=== PATIENT | female | born 1985 | race Caucasian/White ===

== ENCOUNTER 2020-01-29 11:21 | Emergency (ER) | payer SELFPAY ==
--- NOTE | 2020-01-29 11:24 | CTR_ITS ---
PROCEDURE INFORMATION: Exam: CT Abdomen And Pelvis With Contrast Exam date and time: 01/29/2020 1:08 PM Age: 34 years old Clinical indication: Abdominal pain; Acute; Prior surgery; Surgery date: 3-7 days post-operative; Surgery type: Gastric sleeve; Additional info: Abdominal pain, fever TECHNIQUE: Imaging protocol: Computed tomography of the abdomen and pelvis with intravenous contrast. Radiation optimization: All CT scans at this facility use at least one of these dose optimization techniques: automated exposure control; mA and/or kV adjustment per patient size (includes targeted exams where dose is matched to clinical indication); or iterative reconstruction. Contrast material: OMNI 300; Contrast volume: 95 ml; Contrast route: INTRAVENOUS (IV); COMPARISON: No relevant prior studies available. RADIATION DOSE METRICS: Total DLP (mGy-cm): 1851.72 FINDINGS: Liver: Normal. No mass. Gallbladder and bile ducts: Normal. No calcified stones. No ductal dilation. Pancreas: Normal. No ductal dilation. Spleen: Normal. No splenomegaly. Adrenals: Normal. No mass. Kidneys and ureters: Normal. No hydronephrosis. Stomach and bowel: Recent gastric sleeve surgery. Several left colon diverticula. No evidence for acute diverticulitis. Appendix: No evidence of appendicitis. Intraperitoneal space: Unremarkable. No free air. No significant fluid collection. Vasculature: Approximately 2 cm area of low density in the proximal left iliac vein (series 2, axial image 54 through 58). Possible focal nonocclusive left iliac vein thrombus. By CT, there does not appear to be an obvious overlying left iliac vein compression. Lymph nodes: Unremarkable. No enlarged lymph nodes. Bladder: Unremarkable as visualized. Reproductive: 2 cm right ovarian dominant follicle/cyst. Bones/joints: Unremarkable. No acute fracture. Soft tissues: Mild anterior abdominal wall subcutaneous fat stranding consistent with recent laparoscopic surgery. CT/CT abdomen pelvis w con* [id number] IMPRESSION: 1.) Recent gastric sleeve surgery. 2.) Approximately 2 cm area of low density in the proximal left iliac vein (series 2, axial image 54 through 58). Possible focal nonocclusive left iliac vein thrombus. 3.) 2 cm right ovarian dominant follicle/cyst. Radiation Dose CTDIVOL = (mGy): DLP = 1851.72 (mGy-cm)
[2020-01-29 11:31] VITALS: BP 125/99; PULSE 84; RESP 18; TEMP 37.1; O2SAT 97; BMI 40.8
--- NOTE | 2020-01-29 11:47 | ED_ITS ---
HPI - Abdominal Pain General: Chief Complaint: Abdominal Pain Stated Complaint: ABD PAIN Time Seen by Provider: 01/29/20 11:46 History of Present Illness: HPI narrative: Patient is a 34-year-old female who comes to the ED with epigastric pain, nausea vomiting. Patient had gastric sleeve surgery performed approximately 23 days ago at a doctor in [place]. Surgery went well and there were no complications. She developed the epigastric pain, nausea and vomiting yesterday. She states the epigastric pain gets worse if she is lying flat and states that it feels like a burning discomfort. She rates it currently about a 3 out of 10. She is currently been on full liquid diet and has had trouble keeping that down since yesterday. She states she has not had a bowel movement since last . She is also complaining of having trouble urinating for the past week. She states that she is having a lot of dribbling incidences but has not been able to producing good stream when she urinates. Denies any blood in the urine. Patient has not been taking any pain narcotics post surgery. Associated Symptoms: Reports belching, change in bowel habits (no bowel movement since last .), nausea and vomiting; Denies chills, constipation, diarrhea, dysuria, fever(s), hematochezia and hematuria Review of Systems Const: Denies: fever(s), chills or fatigue Eyes: Denies: change in vision or eye discomfort ENMT: Denies: throat pain, odynophagia, nasal discharge or nasal congestion Card: Denies: chest pain, palpitations, edema, swelling of feet/ankles, dyspnea on exertion or orthopnea Resp: Denies: dyspnea, productive cough or non-productive cough GI: Reports: abdominal pain, nausea, vomiting, belching and change in bowel habits (no bowel movement since last .); Denies: diarrhea, constipation or hematochezia : Denies: flank pain, dysuria or hematuria Musc: Denies: neck pain, back pain or extremity swelling Skin/Breast: Denies: rash or new lesions Neuro: Denies: headache(s), numbness in extremities or weakness in extremities Physical Exam Const: COMMON NORMALS: no acute distress, patient oriented x3 and alert GENERAL APPEARANCE: cooperative and comfortable HENMT: COMMON NORMALS: normocephalic HEAD & SCALP: normocephalic MOUTH: Normal oral and palatal mucosa present THROAT: posterior oropharynx normal and uvula midline Eye: COMMON NORMALS: Equal, round and reactive pupils present PUPIL: Yes Equal, round and reactive pupils present Neck/C-Spine: COMMON NORMALS: supple GENERAL: Yes normal visual inspection Resp: COMMON NORMALS: normal respiratory effort, No retractions, No use of accessory muscles and clear to auscultation bilaterally AUSCULTATION: clear to auscultation bilaterally Cardio: COMMON NORMALS: regular rate, regular rhythm, S1 normal heart sound present, S2 normal heart sound present, No gallops present (Cardio), No clicks present (Cardio), No murmurs present (Cardio) and Peripheral pulses 2+ throu ghout RATE: regular rate RHYTHM: regular rhythm HEART SOUNDS: S1 normal heart sound present and S2 normal heart sound present PERIPHERAL PULSES: Peripheral pulses 2+ throughout GI: COMMON NORMALS: Soft to palpation and no masses AUSCULTATION: Yes Hypoactive bowel sounds present (minimal bowel sounds heard) PALPATION: Yes Soft to palpation and Yes Tenderness to palpation present (GI) Details: other (epigastric region) : COMMON NORMALS: Yes no CVA tenderness BLADDER/KIDNEY EXAM: Yes no CVA tenderness Back/Pelvis: COMMON NORMALS: no CVA tenderness Extremity: COMMON NORMALS: normal to inspection and no pedal edema Neuro: COMMON NORMALS: patient oriented x3 SENSORIUM/ORIENTATION: Yes alert GAIT: Yes Normal gait present Skin: COMMON NORMALS: no rashes or lesions noted GENERAL SKIN EXAM: no rashes or lesions noted and dry skin Course Consultations: Consultation #1: I contacted her PCP Dr. Bui and discussed with him the lab and image findings. Dr. Bui stated he just wanted to make sure patient did not have a bowel obstruction. He said he would see patient in a couple days if symptoms worsen or she can set up an appointment with him sometime next week. Vital Signs: Vital signs: Vital Signs Temperature 98.7 F 01/29/20 11:31 Pulse Rate 70 01/29/20 16:31 Respiratory Rate 16 01/29/20 16:31 Blood Pressure 125/85 01/29/20 16:31 Pulse Oximetry 98 01/29/20 16:31 MDM - Abdominal Pain MDM Narrative: Medical decision making narrative: Patient is a 34-year-old female who was sent over to the ED by her PCP Dr. Bui to rule out a bowel obstruction. Patient had a gastric sleeve surgery performed in [place] 26 days ago. In the last 24 hours patient has developed epigastric/reflux burning pain and nausea and vomiting. Patient also had not had a bowel movement in 5 days. CBC and CMP were unremarkable. Lipase 30. CT of the abdomen showed a possible thrombus in the left iliac vein and it was recommended that ultrasound venous duplex of the left lower extremity be performed. Ultrasound venous duplex showed no blood clots or DVTs. Patient was given reglan, Protonix, IV fluids and GI cocktail while here in the ED. Patient's nausea and epigastric pain greatly improved. I contacted Dr. Bui and informed him about the patient's condition and how she did not have a bowel obstruction. Dr. Bui said he would see patient in a couple days if symptoms worsen or next week. Patient discharged and put on a prescription of Protonix and Zofran. She was told to follow-up with Dr. Bui in a couple days if needed or sometime next week. She can always return to the ED for reevaluation if symptoms worsen. Patient understood and agreed with plan. Lab Data: Attestation: I reviewed the patient's lab results. Labs: Lab Results 01/29/20 01/29/20 01/29/20 Range/Units 12:50 12:50 12:50 WBC 7.1 (4.0-10.0) 10^3/ uL RBC 4.76 (4.1-5.3) 10^6/u L Hgb 13.7 (11.5-15.3) g/dL Hct 43.5 (37.0-47.0) % MCV 91.4 (81-99) fL MCH 28.8 (28.0-34.0) pg MCHC 31.5 (30.0-36.0) g/dL RDW 13.4 (12.1-15.1) % Plt Count 195 (130-400) 10^3/c mm MPV 13.5 H (7.4-10.4) fL Neut % (Auto) 64.5 % Lymph % (Auto) 24.2 % [place] % (Auto) 9.7 % Eos % (Auto) 1.1 % Baso % (Auto) 0.4 % Neut # (Auto) 4.56 (1.8-7.7) 10^3/u L Lymph # (Auto) 1.7 (0.8-4.8) 10^3/u L [place] # (Auto) 0.7 (0.2-0.9) 10^3/u L Eos # (Auto) 0.1 (0.0-0.8) 10^3/u L Baso # (Auto) 0.0 (0.0-0.1) 10^3/u L Nucleated RBC % (a uto) 0 % Nucleated RBCs # 0.0 /100WBC Sodium 142 (136-145) mmol/L Potassium 4.2 (3.5-5.1) mmol/L Chloride 107 (98-107) mmol/L Carbon Dioxide 23 (22-29) mmol/L Anion Gap 16.2 (5-19) BUN 6 (6-20) mg/dL Creatinine 0.7 (0.5-0.9) mg/dL GFR Calculation 95.2 (90-130) mL/min Glucose 86 (65-115) mg/dL Calculated Osmolal ity 289 (285-295) mOsm/k g Calcium 9.8 (8.5-10.5) mg/dL Total Bilirubin 1.0 (0.15-1.2) mg/dL AST 32 (0-32) U/L ALT 26 (0-33) U/L Alkaline Phosphata se 83 (35-105) IU/L Total Protein 6.9 (6.6-8.7) g/dL Albumin 4.3 (3.5-5.2) g/dL Globulin 2.6 (1.3-4.6) g/dL Lipase 30 (13-60) U/L HCG, Qual Negative (Negative) Urine Color (Yellow) Urine Appearance (CLEAR) Urine pH (5-7) Ur Specific Gravit y (1.005-1.030) Urine Protein (Negative) Urine Glucose (UA) (Normal) Urine Ketones (Negative) Urine Blood (Negative) Urine Nitrate (Negative) Urine Bilirubin (NEGATIVE) Urine Urobilinogen (Negative) mg/dL Ur Leukocyte Hazel ase (Negative) Urine RBC (0-2) /hpf Urine WBC (0-5) /hpf Ur Squamous Epith Cells (0-5) Amorphous Sediment Urine Bacteria (NONE) Urine Mucus 01/29/20 Range/Units 14:38 WBC (4.0-10.0) 10^3/ uL RBC (4.1-5.3) 10^6/u L Hgb (11.5-15.3) g/dL Hct (37.0-47.0) % MCV (81-99) fL MCH (28.0-34.0) pg MCHC (30.0-36.0) g/dL RDW (12.1-15.1) % Plt Count (130-400) 10^3/c mm MPV (7.4-10.4) fL Neut % (Auto) % Lymph % (Auto) % [place] % (Auto) % Eos % (Auto) % Baso % (Auto) % Neut # (Auto) (1.8-7.7) 10^3/u L Lymph # (Auto) (0.8-4.8) 10^3/u L [place] # (Auto) (0.2-0.9) 10^3/u L Eos # (Auto) (0.0-0.8) 10^3/u L Baso # (Auto) (0.0-0.1) 10^3/u L Nucleated RBC % (a uto) % Nucleated RBCs # /100WBC Sodium (136-145) mmol/L Potassium (3.5-5.1) mmol/L Chloride (98-107) mmol/L Carbon Dioxide (22-29) mmol/L Anion Gap (5-19) BUN (6-20) mg/dL Creatinine (0.5-0.9) mg/dL GFR Calculation (90-130) mL/min Glucose (65-115) mg/dL Calculated Osmolal ity (285-295) mOsm/k g Calcium (8.5-10.5) mg/dL Total Bilirubin (0.15-1.2) mg/dL AST (0-32) U/L ALT (0-33) U/L Alkaline Phosphata se (35-105) IU/L Total Protein (6.6-8.7) g/dL Albumin (3.5-5.2) g/dL Globulin (1.3-4.6) g/dL Lipase (13-60) U/L HCG, Qual (Negative) Urine Color Dark yellow (Yellow) Urine Appearance Hazy A (CLEAR) Urine pH 5 (5-7) Ur Specific Gravit y 1.015 (1.005-1.030) Urine Protein Neg (Negative) Urine Glucose (UA) Norm (Normal) Urine Ketones 1+ H (Negative) Urine Blood Neg (Negative) Urine Nitrate Negative (Negative) Urine Bilirubin Neg (NEGATIVE) Urine Urobilinogen 1 H (Negative) mg/dL Ur Leukocyte Hazel ase Negative (Negative) Urine RBC 0-4 H (0-2) /hpf Urine WBC None (0-5) /hpf Ur Squamous Epith Cells 40-55 H (0-5) Amorphous Sediment Not Reportable Urine Bacteria Trace (NONE) Urine Mucus 2+ Imaging Data ^: CT Abd/Pel: Attestation: I personally reviewed and interpreted this imaging study as follows: Radiologist's impression: [place] [address] CT Scan Report Signed with Addenda Patient: Chanell Andujar Unit #: [id number] : 1985 Age/Sex: 34 / F ADM Date: 01/29/20 Loc: ER Room/Bed: Attending Dr: Ordering Provider/Ordering MD: Larissa Strange MD Date of Service: 01/29/20 Procedure(s): CT abdomen pelvis w con* [id number] Accession Number(s): [id number] Report Number: [id number]/CT abdomen pelvis w con* [id number] Addendum created at 2:[address] findings discussed with GONSALO Soriano via phone conference at 2:26 p.m.. Findings were understood and acknowledged. Radiation Dose CTDIVOL = (mGy): DLP = 1851.72 (mGy-cm) Addendum Dictated By: Elvis Pizano MD Addendum Signed By: Elvis Pizano MD Signed Date/Time: 1430 Addendum Cosigned By: PROCEDURE INFORMATION: Exam: CT Abdomen And Pelvis With Contrast Exam date and time: 01/29/2020 1:08 PM Age: 34 years old Clinical indication: Abdominal pain; Acute; Prior surgery; Surgery date: 3-7 days post-operative; Surgery type: Gastric sleeve; Additional info: Abdominal pain, fever TECHNIQUE: Imaging protocol: Computed tomography of the abdomen and pelvis with intravenous contrast. Radiation optimization: All CT scans at this facility use at least one of these dose optimization techniques: automated exposure control; mA and/or kV adjustment per patient size (includes targeted exams where dose is matched to clinical indication); or iterative reconstruction. Contrast material: OMNI 300; Contrast volume: 95 ml; Contrast route: INTRAVENOUS (IV); COMPARISON: No relevant prior studies available. RADIATION DOSE METRICS: Total DLP (mGy-cm): 1851.72 FINDINGS: Liver: Normal. No mass. Gallbladder and bile ducts: Normal. No calcified stones. No ductal dilation. Pancreas: Normal. No ductal dilation. Spleen: Normal. No splenomegaly. Adrenals: Normal. No mass. Kidneys and ureters: Normal. No hydronephrosis. Stomach and bowel: Recent gastric sleeve surgery. Several left colon diverticula. No evidence for acute diverticulitis. Appendix: No evidence of appendicitis. Intraperitoneal space: Unremarkable. No free air. No significant fluid collection. Vasculature: Approximately 2 cm area of low density in the proximal left iliac vein (series 2, axial image 54 through 58). Possible focal nonocclusive left iliac vein thrombus. By CT, there does not appear to be an obvious overlying left iliac vein compression. Lymph nodes: Unremarkable. No enlarged lymph nodes. Bladder: Unremarkable as visualized. Reproductive: 2 cm right ovarian dominant follicle/cyst. Bones/joints: Unremarkable. No acute fracture. Soft tissues: Mild anterior abdominal wall subcutaneous fat stranding consistent with recent laparoscopic surgery. CT/CT abdomen pelvis w con* [id number] IMPRESSION: 1.) Recent gastric sleeve surgery. 2.) Approximately 2 cm area of low density in the proximal left iliac vein (series 2, axial image 54 through 58). Possible focal nonocclusive left iliac vein thrombus. 3.) 2 cm right ovarian dominant follicle/cyst. Radiation Dose CTDIVOL = (mGy): DLP = 1851.72 (mGy-cm) Dictated By: Elvis Pizano MD Signed By: Elvis Pizano MD Signed Date/Time: 01/29/20 142 DD/ 142 US Vascular: Attestation: I personally reviewed and interpreted this imaging study as follows: Radiologist's impression: US francisco duplex--left lower extremity--prelim report -no DVTs or blood clots seen. Discharge Plan Discharge Patient Disposition: Home, Self-Care Clinical Impression: Status post gastric surgery Acid reflux Qualifiers: Esophagitis presence: esophagitis presence not specified Qualified Code(s): K21.9 - Gastro-esophageal reflux disease without esophagitis Condition: Stable Prescriptions: New Protonix 40 mg tablet,delayed release (DR/EC) 40 mg PO DAILY Qty: 60 RF: 0 ondansetron 4 mg tablet,disintegrating 4 mg PO Q8H Qty: 30 RF: 0 No Action Paxil 20 mg Tablet 20 mg PO DAILY RF: 0 Women's Multivitamin Gummies 200 mcg Tablet,Chewable 200 mcg PO DAILY RF: 0 Discharge Orders: Discharge Order (Routine); Ordered 01/29/20 Ordered By: Javier Soriano Referrals: Tristan Bui MD [Primary Care Provider] - Discharge Diet: Clear Liquid and Full LIquid Discharge Activity: Resume usual activity Patient Instructions: Gastroesophageal Reflux Disease (ED) Activity Restrictions/Additional Instructions: Follow-up with medical provider as directed in 7-10 days. Continue progression of post gastric sleeve diet. Take medications as prescribed. Return to the ER or your medical provider if condition worsens. Please read and understand discharge instructions. If any questions, please ask. Discharge Date/Time: 01/29/20 16:32 Coding Level of Care Code ED Technical Communication Teacher for Chg Fwd Exam Comprehensive
[2020-01-29 12:41] VITALS: BP 126/73; PULSE 75; RESP 14; O2SAT 99
[2020-01-29] MEDS: metoclopramide 5 mg/mL SDV 2 mL 10 MG IVP (12:42)
[2020-01-29] MEDS: sodium chloride 0.9% 1,000 ML 999 ML IV (12:43)
[2020-01-29 12:57] LABS: Basophils % 0.4 %; Eosinophils # 0.1 10^3/uL (0.0-0.8); Eosinophils % 1.1 %; Hematocrit 43.5 % (37.0-47.0); Hemoglobin 13.7 g/dL (11.5-15.3); Lymphocytes # 1.7 10^3/uL (0.8-4.8); Lymphocytes % 24.2 %; Mean Corpuscular HGB Conc 31.5 g/dL (30.0-36.0); Mean Corpuscular Hemoglobin 28.8 pg (28.0-34.0); Mean Corpuscular Volume 91.4 fL (81-99); Mean Platelet Volume 13.5 fL (7.4-10.4); Monocytes # 0.7 10^3/uL (0.2-0.9); Monocytes % 9.7 %; Neutrophils # 4.56 10^3/uL (1.8-7.7); Neutrophils % 64.5 %; Nucleated Red Blood Cells % 0 %; Platelet Count 195 10^3/cmm (130-400); Red Blood Count 4.76 10^6/uL (4.1-5.3); Red Cell Distribution Width 13.4 % (12.1-15.1); White Blood Count 7.1 10^3/uL (4.0-10.0)
[2020-01-29 13:07] LABS: HCG, Serum Qual Negative (Negative)
[2020-01-29 13:16] LABS: Alanine Aminotransferase 26 U/L (0-33); Albumin Level 4.3 g/dL (3.5-5.2); Alkaline Phosphatase 83 IU/L (35-105); Anion Gap 16.2 (5-19); Aspartate Amino Transferase 32 U/L (0-32); Blood Urea Nitrogen 6 mg/dL (6-20); Calcium 9.8 mg/dL (8.5-10.5); Carbon Dioxide 23 mmol/L (22-29); Chloride 107 mmol/L (98-107); Globulin 2.6 g/dL (1.3-4.6); Glomerular Filtration Rate 95.2 mL/min (90-130); Glucose 86 mg/dL (65-115); Lipase 30 U/L (13-60); Osmolality Calculated 289 mOsm/kg (285-295); Potassium 4.2 mmol/L (3.5-5.1); Sodium 142 mmol/L (136-145); Total Protein 6.9 g/dL (6.6-8.7)
[2020-01-29] MEDS: iohexol 300 mg/mL 100 mL Btl IV (13:38)
--- NOTE | 2020-01-29 14:27 | USCV_ITS ---
PratimaChanell Age: 34 Gender: F : 1985 Exam Date: 01/29/2020 14:47 Ordering Phys: Javier Soriano Technologist: Eric Brennan [place] [facility] [place]: LT [place] DVT SEEN ON CT HISTORY: Lower extremity edema. PROCEDURES: On the left side, the common femoral, superficial femoral, profunda femoral, popliteal, posterior tibial, greater saphenous veins, and the peroneal trunk were identified and interrogated in the standard fashion. These veins were found to be easily compressible with spontaneous blood flow. No evidence of insufficiency or thrombus noted. FINDINGS: Normal 2-D Doppler and augmentation and compressibility throughout the lower extremity venous structures. Additional imaging through the proximal calf veins also reveals no thrombus. Limited evaluation of the greater saphenous vein is patent with no thrombus.. CONCLUSIONS No evidence of left lower extremity DVT. Kofi Avila MD (Electronically Signed) Final Date: 29 January 2020 17:00 S
[2020-01-29] MEDS: pantoprazole 40 mg SDV IVP (15:01)
[2020-01-29 15:11] LABS: Add Urine Microscopic? YES; Bilirubin Urine Neg (NEGATIVE); Blood Urine Neg (Negative); Glucose Urine UA Norm (Normal); Ketones Urine 1+ (Negative); Leukocyte Esterase Urine Negative (Negative); Nitrate Urine Negative (Negative); Protein Urine Neg (Negative); Specific Gravity, Urine 1.015 (1.005-1.030); Urine Appearance Hazy (CLEAR); Urine Color Dark Yellow (Yellow); Urobilinogen Urine 1 mg/dL (Negative); pH Urine 5 (5-7)
[2020-01-29 15:12] LABS: RBC Urine 0-4 /hpf (0-2); Squamous Epithelial Cell Urine 40-55 (0-5)
[2020-01-29 15:13] LABS: Add Urine Culture? No; Bacteria Urine TRACE; Mucus Urine 2+
[2020-01-29] MEDS: lidocaine 2% viscous 15 ML, aluminum-mag hydrox-simethicon 30 ML, sucralfate oral liq 1 GM PO (15:41)
[2020-01-29 16:31] VITALS: BP 125/85; PULSE 70; RESP 16; O2SAT 98
== END 2020-01-29 16:32 | disposition home or self-care (01) ==
PROVIDERS: Emergency Provider Physician Assistant; PCP Family Medicine
DX: K21.9 Gastro-esophageal reflux disease without esophagitis (principal); Z98.890 Other specified postprocedural states
CPT/HCPCS: 12345; 74177; 80053; 81001; 81003; 83690; 84703; 85025; 93971; 96361; 96374; 96375; 99283; 99284; C9113; J2765; J7030; Q9967

== ENCOUNTER → 2020-05-28 18:06 | Outpatient (BNVA) | payer OTHER, SELFPAY | PROVIDERS: PCP Family Medicine; Visit Provider Nurse Practitioner | DX: Z11.59 Encounter for screening for other viral diseases (principal); Z20.828 Contact with and (suspected) exposure to other viral communicable diseases | CPT/HCPCS: 87635 ==

== ENCOUNTER → 2020-06-06 15:15 | Outpatient (BNVA) | payer OTHER, SELFPAY | PROVIDERS: PCP Family Medicine; Visit Provider Nurse Practitioner Family | DX: Z11.59 Encounter for screening for other viral diseases (principal); J06.9 Acute upper respiratory infection, unspecified | CPT/HCPCS: 87635 ==

== ENCOUNTER → 2020-06-14 13:25 | Outpatient (BNVA) | payer SELFPAY | PROVIDERS: PCP Family Medicine; Visit Provider Nurse Practitioner | DX: Z20.828 Contact with and (suspected) exposure to other viral communicable diseases (principal) | CPT/HCPCS: 87635 ==

== ENCOUNTER → 2020-06-27 15:16 | Outpatient (BNVA) | payer OTHER, SELFPAY | PROVIDERS: PCP Family Medicine; Visit Provider Nurse Practitioner | DX: Z20.828 Contact with and (suspected) exposure to other viral communicable diseases (principal) | CPT/HCPCS: 87635 ==

== ENCOUNTER → 2021-03-28 15:14 | Outpatient (BNVA) | payer SELFPAY | PROVIDERS: PCP Family Medicine; Visit Provider Nurse Practitioner | DX: M25.572 Pain in left ankle and joints of left foot (principal) | CPT/HCPCS: 73610 ==

== ENCOUNTER → 2021-04-17 16:10 | Outpatient (BNVA) | payer SELFPAY | PROVIDERS: PCP Family Medicine; Referring Provider Nurse Practitioner Family; Visit Provider Obstetrics & Gynecology | DX: N93.9 Abnormal uterine and vaginal bleeding, unspecified (principal) | CPT/HCPCS: 83036; 83525; 84443; 85025; 88305 ==

== ENCOUNTER → 2021-05-08 08:06 | Outpatient (BNVA) | payer SELFPAY | PROVIDERS: PCP Family Medicine; Visit Provider Obstetrics & Gynecology | DX: N93.9 Abnormal uterine and vaginal bleeding, unspecified (principal) | CPT/HCPCS: 76830 ==

== ENCOUNTER → 2021-05-15 11:14 | Outpatient (BNVA) | payer OTHER, SELFPAY | PROVIDERS: PCP Family Medicine; Visit Provider Obstetrics & Gynecology | DX: R87.612 Low grade squamous intraepithelial lesion on cytologic smear of cervix (LGSIL) (principal); B97.7 Papillomavirus as the cause of diseases classified elsewhere | CPT/HCPCS: 88305 ==

== ENCOUNTER → 2021-05-29 14:42 | Outpatient (BNVA) | payer SELFPAY | PROVIDERS: PCP Nurse Practitioner Family; Visit Provider Obstetrics & Gynecology | DX: Z20.822 Contact with and (suspected) exposure to COVID-19 (principal); N81.4 Uterovaginal prolapse, unspecified; N93.9 Abnormal uterine and vaginal bleeding, unspecified | CPT/HCPCS: 87635 ==

== ENCOUNTER 2021-06-03 09:53 | Observation (INO) | payer SELFPAY ==
[2021-06-02 15:27] VITALS: BMI 30.9
[2021-06-03] VITALS (19 sets, daily range): BP systolic 81–148; BP diastolic 43–93; PULSE 18–91; RESP 15–19; TEMP 36.2–36.6; O2SAT 98–100; BMI 30.9
[2021-06-03] MEDS: sodium chloride 0.9% 1,000 ML 30 ML IV (06:35)
[2021-06-03 06:45] LABS: Basophils % 0.6 %; Eosinophils # 0.1 10^3/uL (0.0-0.8); Eosinophils % 1.9 %; Hematocrit 34.9 % (37.0-47.0); Hemoglobin 10.7 g/dL (11.5-15.3); Lymphocytes # 1.9 10^3/uL (0.8-4.8); Lymphocytes % 39.2 %; Mean Corpuscular HGB Conc 30.7 g/dL (30.0-36.0); Mean Corpuscular Hemoglobin 25.6 pg (28.0-34.0); Mean Corpuscular Volume 83.5 fl (81-99); Mean Platelet Volume 11.2 fL (7.4-10.4); Monocytes # 0.4 10^3/uL (0.2-0.9); Monocytes % 8.8 %; Neutrophils # 2.35 10^3/uL (1.8-7.7); Neutrophils % 49.5 %; Nucleated Red Blood Cells % 0 %; Platelet Count 287 10^3/cmm (130-400); Red Blood Count 4.18 10^6/uL (4.1-5.3); Red Cell Distribution Width 15.3 % (12.1-15.1); White Blood Count 4.8 10^3/uL (4.0-10.0)
[2021-06-03 06:46] LABS: OR HCG Qualitative Urine Negative (Negative)
--- NOTE | 2021-06-03 07:00 | W.PM.OPSUD ---
Surgery/Procedure H&P Update DATE OF PROCEDURE: June 03, 2021 DATE H&P PERFORMED: 05/29/21 H&P UPDATE INFORMATION: I have reviewed H&P completed within last 30 days, I have examined patient prior to procedure and No changes to prior documentation PLANNED PROCEDURE: Operation Date: 06/03/21 07:00 Proposed Procedures p Laparoscopic Assist Vaginal Hysterectomy 11293 N81.4 N93.9(Not Applicable) - Nohemi Zuniga MD s Laparoscopic Salpingectomy(Bilateral) - Nohemi Zuniga MD
[2021-06-03 07:09] LABS: Alanine Aminotransferase 7 U/L (0-33); Albumin Level 3.8 g/dL (3.5-5.2); Alkaline Phosphatase 62 IU/L (35-105); Anion Gap 15.7 (5-19); Aspartate Amino Transferase 13 U/L (0-32); Blood Urea Nitrogen 10 mg/dL (6-20); Carbon Dioxide 23 mmol/L (22-29); Chloride 101 mmol/L (98-107); Globulin 3.3 g/dL (1.3-4.6); Glomerular Filtration Rate 94.7 mL/min (90-130); Glucose 90 mg/dL (65-115); Osmolality Calculated 281 mOsm/kg (285-295); Potassium 3.7 mmol/L (3.5-5.1); Sodium 136 mmol/L (136-145); Total Bilirubin 0.5 mg/dL (0.15-1.2); Total Protein 7.1 g/dL (6.6-8.7)
[2021-06-03] MEDS: phenazopyridine 100 mg Tablet 200 MG PO (07:17)
[2021-06-03] MEDS: CELEcoxib 200 mg Capsule 400 MG PO (07:18)
[2021-06-03] MEDS: gabapentin 300 mg Capsule PO (07:20)
[2021-06-03] MEDS: acetaminophen 1,000 MG/100 ML PIGGYBACK 400 MG IV (07:20)
[2021-06-03] MEDS: ketorolac 30 mg/mL INJ IVP ×3 (07:22→22:46)
[2021-06-03 07:24] LABS: Calcium 8.5 mg/dL (8.5-10.5)
--- NOTE | 2021-06-03 07:43 | P.ANESASSM_ITS ---
Pre-Anesthetic Assessment Pre-Anesthetic Assessment: Height/Weight: Height 1.63 m Weight 81.647 kg Temp Pulse Resp BP Pulse Ox 97.1 F L 18 L 18 119/69 100 06/03/21 06:27 06/03/21 06:27 06/03/21 06:27 06/03/21 06:27 06/03/21 06:27 Preop Diagnosis: uterine prolapse, AUB, LGSIL Proposed Procedure: Operation Date: 06/03/21 07:00 Proposed Procedures p Laparoscopic Assist Vaginal Hysterectomy 56745 N81.4 N93.9(Not Applicable) - Nohemi Zuniga MD s Laparoscopic Salpingectomy(Bilateral) - Nohemi Zuniga MD Was Beta Marco taken within 24 hours: N/A Was Clonidine taken within 24 hours: N/A Last intake: Intake Last Liquid Date 06/02/21 Last Liquid Time 22:00 Last Solid Date 06/02/21 Last Solid Time 19:00 Social: Social History: Tobacco and No alcohol Exam: Pre-Anes Outpt Exam: alert, oriented x 3, clear to auscultation bilaterally and regular rate & rhythm Airway: Submandibular: WNL Cervical ROM: WNL MP: 2 Dentition: Full GI: GI: GERD Neuropsych: Neuropsych: Anxiety and Depression Anesthetic Plan: ASA status: 3 Anesthesia: General Risk of > 500 ml blood loss (7ml/kg in children): No Meds/Allergies Current Medications: Current Medications Generic Name Dose Route Start Last Admin Trade Name Freq PRN Reason Stop Dose Admin Sodium Chloride 1,000 mls @ 30 ml s/hr 06/03/21 06:30 06/03/21 06:35 Sodium Chloride 0.9% IV 06/04/21 06:29 30 mls/hr .Q24H LM Administration PFSH Anesthesia PFSH: Medical History Abnormal uterine bleeding due to leiomyoma of uterus Acid reflux Anxiety Hypertension Surgical History H/O tubal ligation History of colonoscopy History of gastric bypass sleeve--2020 Family History Sister Cancer melanoma Grandmother Chronic kidney disease (CKD) Paternal Diabetes Paternal Hypertension Paternal Thyroid disease Maternal and paternal Grandfather Diabetes Paternal Hypertension Paternal Thyroid disease Maternal and paternal Father Hypertension Denies family history of CAD (coronary artery disease) Clotting disorder Hyperlipidemia Bleeding disorder Stroke Social History Smoking and tobacco status: never smoked Data Anesthesia CBC & Chem 7: 06/03/21 06:30 06/03/21 06:30 Other Labs: Laboratory Results - last 48 hr 06/03/21 06/03/21 06/03/21 06:30 06:30 06:40 WBC 4.8 RBC 4.18 Hgb 10.7 L Hct 34.9 L MCV 83.5 MCH 25.6 L MCHC 30.7 RDW 15.3 H Plt Count 287 MPV 11.2 H Neut % (Auto) 49.5 Lymph % (Auto) 39.2 [place] % (Auto) 8.8 Eos % (Auto) 1.9 Baso % (Auto) 0.6 Neut # (Auto) 2.35 Lymph # (Auto) 1.9 [place] # (Auto) 0.4 Eos # (Auto) 0.1 Baso # (Auto) 0.0 Nucleated RBC % (auto) 0 Nucleated RBCs # 0.0 Sodium 136 Potassium 3.7 Chloride 101 Carbon Dioxide 23 Anion Gap 15.7 BUN 10 Creatinine 0.7 GFR Calculation 94.7 Glucose 90 Calculated Osmolality 281 L Calcium 8.5 Total Bilirubin 0.5 AST 13 ALT 7 Alkaline Phosphatase 62 Total Protein 7.1 Albumin 3.8 Globulin 3.3 Urine HCG, Qual Negative Cardiac Studies: No Data to Display
[2021-06-03] MEDS: vasopressin 20 unit/mL INJ INJECTION (08:28)
--- NOTE | 2021-06-03 09:40 | PC.NURSE ---
shahbazlix with ky jelly placed into vagina for packing
--- NOTE | 2021-06-03 09:59 | P.OP_ITS ---
Operative Report Date of procedure: June 03, 2021 Pre-op Diagnosis: uterine prolapse, AUB, LGSIL Post-op diagnosis: same Post-op Findings: 10 week sized uterus, normal appearing tubes and ovaries. Omental adhesions to bilateral adnexa . Procedure Done: laparoscopic assisted vaginal hysterectomy Specimens removed/disposition: uterus and bilateral tubes to pathology Surgeon: Nohemi Zuniga Anesthesia: General Estimated blood loss (mL): 50 IV fluids (mL): 1,000 Urine output (mL): 100 Complications: none Condition: stable Disposition: floor Procedure: The patient was taken to the operating room where general anesthesia was administered and found to be adequate. She was prepped and draped in the normal sterile fashion in the dorsal lithotomy position in [facility]. A Ramirez catheter was placed. A weighted speculum was placed into the vagina and the anterior lip of the cervix was grasped with a single tooth tenaculum. The Zumi uterine manipulator was placed. The weighted speculum was removed. The gloves were changed and attention was turned to the abdomen. A 5 mm infraumbilical incision was made. Using a 5 mm port with the camera, the port was placed into the abdomen. The abdomen was insufflated. Two low, lateral 5 mm ports were placed on the left and right under direct visualization from the camera. The right tube was grasped and elevated. Using the laparoscopic cautery, the mesosalpinx was divided between the ovary and tube. The tube was removed. This was performed the same way on the left. The uteroovarian ligaments as well as the round ligaments were ligated. Attention was then turned to the vaginal portion of the procedure. The weighted speculum was placed into the vagina. The zumi manipulator was removed. The single tooth tenaculum was removed and replaced with the galo's tenaculum. 10 mL of dilute Pitressin was injected at the vesicovaginal junction. A circumferential incision was made at the vesicovaginal junction and the vaginal mucosa reflected cephalad. The posterior peritoneum was entered sharply with the Metzenbaum scissors and the long weighted speculum replaced. Using the Gomez clamps the uterosacral ligaments were clamped cut and suture- ligated. The anterior peritoneum was entered sharply with the metzenbaum scissors. Then sequentially the uterine arteries and cardinal ligaments were clamped cut and suture-ligated. A single-tooth tenaculum was used to deliver the uterus. The remaining segement of the utero-ovarian ligaments were clamped cut and suture-ligated bilaterally and the specimen was removed. There was good hemostasis with only mild bleeding from the cuff. The peritoneum was closed with a pursestring using 2-0 Vicryl. The vaginal cuff was closed with 0 Vicryl in a running locked pattern incorporating the uterosacral ligaments into the lateral aspects of the vaginal cuff. The Ramirez catheter was removed and the cystoscope advanced into the bladder. The patient was given pyridium and bilateral spill was noted. There were no injuries or deficits noted in the bladder. The cystoscope was removed and the Ramirez was replaced. Vaginal packing was placed for good hemostasis. The patient tolerated the procedure well. Sponge lap and needle counts were correct x3. She was taken to the recovery room in stable condition. Associated Problem List Diagnoses (1) Uterine prolapse: (2) LGSIL (low grade squamous intraepithelial dysplasia): (3) Abnormal uterine bleeding (AUB):
--- NOTE | 2021-06-03 10:10 | PC.NURSE ---
patient positioned to Dr Zuniga preference with buttocks off bed aprox 4 in. while in lithotomy position
[2021-06-03] MEDS: fentaNYL 50 mcg/mL INJ 2mL IVP ×2 (10:12→10:17)
[2021-06-03] MEDS: ondansetron 2 mg/ML SDV 2 mL 4 MG IVP ×2 (10:15→10:59)
[2021-06-03] MEDS: HYDROcodone-acetaminophen 5-325 mg Tablet PO ×2 (10:59→18:49)
--- NOTE | 2021-06-03 14:43 | ANE.PACU2 ---
Inpatient post-anesthesia follow up: Airway intact: Yes Vital signs: Temperature 97.5 F Pulse Rate 83 Respiratory Rate 16 Blood Pressure 102/65 Pulse Oximetry 100 Oxygen Delivery Me thod Room Air Oxygen Flow Rate Fraction of Inspir ed Oxygen Hydration adequate: Yes Nausea and vomiting: No Pain level: 2 Mental status: Baseline
--- NOTE | 2021-06-03 16:08 | PC.NURSE ---
HAD MORE VITALS AND MOTHER OF PATIENT TURNED THE MACHINE OFF.
[2021-06-03] MEDS: docusate sodium 100 mg Capsule PO (17:35)
[2021-06-03] MEDS: lactated ringers 1,000 ML 125 ML IV (20:23)
[2021-06-03] MEDS: acetaminophen 325 mg Tablet 650 MG PO (20:24)
[2021-06-03] MEDS: temazepam 15 mg Capsule 30 MG PO (22:46)
[2021-06-04] MEDS: HYDROcodone-acetaminophen 5-325 mg Tablet PO ×2 (02:20→11:02)
[2021-06-04 04:45] VITALS: BP 98/62; PULSE 75; RESP 16; TEMP 36.7
[2021-06-04] MEDS: ketorolac 30 mg/mL INJ IVP (04:53)
[2021-06-04] MEDS: dextrose 5%-lactated ringers 1,000 ML 125 ML IV (05:15)
[2021-06-04 05:38] LABS: Basophils % 0.2 %; Eosinophils % 0.1 %; Hematocrit 28.7 % (37.0-47.0); Hemoglobin 8.8 g/dL (11.5-15.3); Lymphocytes # 1.8 10^3/uL (0.8-4.8); Lymphocytes % 17.9 %; Mean Corpuscular HGB Conc 30.7 g/dL (30.0-36.0); Mean Corpuscular Hemoglobin 25.7 pg (28.0-34.0); Mean Corpuscular Volume 83.7 fl (81-99); Mean Platelet Volume 12.2 fL (7.4-10.4); Monocytes # 0.9 10^3/uL (0.2-0.9); Neutrophils # 7.46 10^3/uL (1.8-7.7); Neutrophils % 72.5 %; Nucleated Red Blood Cells % 0 %; Platelet Count 225 10^3/cmm (130-400); Red Blood Count 3.43 10^6/uL (4.1-5.3); Red Cell Distribution Width 15.2 % (12.1-15.1); White Blood Count 10.3 10^3/uL (4.0-10.0)
[2021-06-04 06:10] LABS: Alanine Aminotransferase 6 U/L (0-33); Albumin Level 3.3 g/dL (3.5-5.2); Alkaline Phosphatase 55 IU/L (35-105); Anion Gap 14.1 (5-19); Aspartate Amino Transferase 12 U/L (0-32); Blood Urea Nitrogen 8 mg/dL (6-20); Calcium 8.1 mg/dL (8.5-10.5); Carbon Dioxide 23 mmol/L (22-29); Chloride 105 mmol/L (98-107); Globulin 2.4 g/dL (1.3-4.6); Glomerular Filtration Rate 113.1 mL/min (90-130); Glucose 85 mg/dL (65-115); Osmolality Calculated 284 mOsm/kg (285-295); Potassium 4.1 mmol/L (3.5-5.1); Sodium 138 mmol/L (136-145); Total Bilirubin 0.5 mg/dL (0.15-1.2); Total Protein 5.7 g/dL (6.6-8.7)
--- NOTE | 2021-06-04 08:30 | PC.NURSE ---
and this science writer at bedside, removed vaginal packing and this science writer removed rojas catheter. 500mL of urine in rojas bag when removed.
--- NOTE | 2021-06-04 08:42 | PM.DCS ---
Discharge Providers Date of Admission: 06/03/21 09:53 Date of Discharge: June 04, 2021 Attending Provider at Admission: Nohemi Zuniga MD Attending Provider at Discharge: Nohemi Zuniga MD Primary Care Provider: DELORIS Gu Diagnoses at Discharge Discharge Diagnosis (1) Uterine prolapse: Status: Acute (2) LGSIL (low grade squamous intraepithelial dysplasia): Status: Acute (3) Abnormal uterine bleeding (AUB): Status: Acute Reason for Visit Reason for Visit: Uterine Prolapse, Abnormal uterine bleeding Hospital Course Hospital Course The patient was admitted for surgery. she did well postoperatively. She was ready for discharge on day #1 Physical Exam Narrative: EXAM NARRATIVE: The patient is doing well this morning Const: COMMON NORMALS: no acute distress, average body habitus, patient oriented x3, no limitations, healthy appearing, alert and well nourished GENERAL APPEARANCE: cooperative, comfortable, well kempt and well developed ORIENTATION/CONSCIOUSNESS: Yes awake, Yes oriented to person, Yes oriented to place and Yes oriented to time Resp: COMMON NORMALS: normal respiratory effort EFFORT & INSPECTION: Yes able to speak in complete sentences GI: COMMON NORMALS: Soft to palpation and non-tender PALPATION: Yes Soft to palpation Extremity: COMMON NORMALS: no calf tenderness Neuro: COMMON NORMALS: patient oriented x3 SENSORIUM/ORIENTATION: Yes alert, Yes oriented to person, Yes oriented to place and Yes oriented to time Psych: APPEARANCE: Yes well kempt Urinary Catheter Management^: Ramirez: Cath Placed During This Visit: yes Reason for Continuing Indwelling Catheter: Perioperative Use in Selected Surgeries Urinary Catheter Date of Insertion: 06/03/21 Urinary Catheter Time of Insertion: 08:00 Discharge Data Data Completed and Pending: Pending at discharge Category Date Time Status ES surgery / GI i mages Routine Exams 06/03/21 06:33 Taken Urine Culture [facility] 06/03/21 08:20 Received Pathology: Surgic al [PTH] Routine Pth 06/03/21 10:03 Stop Req Labs from last 24 hours 06/04/21 06/04/21 04:30 04:30 WBC 10.3 H RBC 3.43 L Hgb 8.8 L Hct 28.7 L MCV 83.7 MCH 25.7 L MCHC 30.7 RDW 15.2 H Plt Count 225 MPV 12.2 H Neut % (Auto) 72.5 Lymph % (Auto) 17.9 Mcpherson % (Auto) 9.0 Eos % (Auto) 0.1 Baso % (Auto) 0.2 Neut # (Auto) 7.46 Lymph # (Auto) 1.8 Mcpherson # (Auto) 0.9 Eos # (Auto) 0.0 Baso # (Auto) 0.0 Nucleated RBC % (a uto) 0 Nucleated RBCs # 0.0 Sodium 138 Potassium 4.1 Chloride 105 Carbon Dioxide 23 Anion Gap 14.1 BUN 8 Creatinine 0.6 GFR Calculation 113.1 Glucose 85 Calculated Osmolal ity 284 L Calcium 8.1 L Total Bilirubin 0.5 AST 12 ALT 6 Alkaline Phosphata se 55 Total Protein 5.7 L Albumin 3.3 L Globulin 2.4 Vitals: Last Vital Signs Temp 98.1 F 06/04/21 04:45 Pulse 75 06/04/21 04:45 Resp 16 06/04/21 04:45 BP 98/62 06/04/21 04:45 Pulse Ox 98 06/03/21 16:28 Discharge Plan Discharge Patient Disposition: Home Condition: Stable Prescriptions: New ibuprofen 800 mg Tablet 800 mg PO Q8H Qty: 30 RF: 0 hydrocodone-acetaminophen 5-325 mg Tablet 1 tab PO Q4H PRN (Reason: Moderate To Severe Pain) Qty: 30 RF: 0 docusate sodium 100 mg Capsule 100 mg PO BID Qty: 60 RF: 0 trazodone 50 mg tablet 50 mg PO .hs Qty: 30 RF: 6 Continued omeprazole 20 mg capsule,delayed release(DR/EC) 20 mg PO DAILY RF: 0 clobetasol 0.05 % cream 1 applic topical BID 14 Days Qty: 45 RF: 0 Paxil 20 mg tablet 30 mg PO DAILY RF: 0 Discharge Orders: Discharge Order (Routine); Ordered 06/04/21 Ordered By: Nohemi Zuniga Patient Instructions: Opioid Safety Discharge Attestations Time Spent in Discharge Care*: less than 30 min Quality Metrics Clinical Quality Measures During this hospital stay, did patient experience: None Coding Level of Care Code Acute Chg FW DC note Diagnoses Uterine prolapse N81.4 LGSIL (low grade squamous intraepithelial dysplasia) Abnormal uterine bleeding (AUB) N93.9
[2021-06-04] MEDS: pantoprazole DR 40 mg Tablet PO (09:48)
[2021-06-04] MEDS: docusate sodium 100 mg Capsule PO (09:49)
[2021-06-04] MEDS: ibuprofen 800 mg tablet PO (09:49)
[2021-06-04] MEDS: ondansetron 2 mg/ML SDV 2 mL 4 MG IVP (10:49)
[2021-06-04 11:05] VITALS: BP 104/75; PULSE 80; RESP 18; O2SAT 100
== END 2021-06-04 11:10 | disposition home or self-care (01) ==
LOC: OBGYN 09:54
PROVIDERS: Anesthesiology; Admitting Provider Obstetrics & Gynecology; PCP Nurse Practitioner Family; Visit Provider Obstetrics & Gynecology
PROC: 0UT9FZZ Resection of Uterus, Via Natural or Artificial Opening With Percutaneous Endoscopic Assistance (ICD-10-PCS; CPT 58552; principal; 2021-06-03 07:00)
PROC: (CPT 58661; 2021-06-03 07:00)
PROC: 0TJB8ZZ Inspection of Bladder, Via Natural or Artificial Opening Endoscopic (ICD-10-PCS; CPT 52000; 2021-06-03 07:00)
DX: N81.4 Uterovaginal prolapse, unspecified (principal); N93.9 Abnormal uterine and vaginal bleeding, unspecified; R87.612 Low grade squamous intraepithelial lesion on cytologic smear of cervix (LGSIL); K21.9 Gastro-esophageal reflux disease without esophagitis; F41.9 Anxiety disorder, unspecified; F32.A Depression, unspecified; I10 Essential (primary) hypertension
CPT/HCPCS: 58552; 36415; 80053; 84703; 85025; 87086; 88307; G0378; J0690; J1885; J2250; J2405; J2704; J3010; J3490; J7030

== ENCOUNTER → 2021-06-09 09:34 | Outpatient (BNVA) | payer SELFPAY | PROVIDERS: PCP Nurse Practitioner Family; Visit Provider Obstetrics & Gynecology | DX: R30.9 Painful micturition, unspecified (principal); N23 Unspecified renal colic; R39.9 Unspecified symptoms and signs involving the genitourinary system | CPT/HCPCS: 80053; 81000; 85025; 87086 ==

== ENCOUNTER → 2021-07-17 15:49 | Outpatient (BNVA) | payer SELFPAY | PROVIDERS: PCP Nurse Practitioner Family; Visit Provider Obstetrics & Gynecology | DX: R30.0 Dysuria (principal) | CPT/HCPCS: 81000 ==

== ENCOUNTER → 2023-03-04 15:36 | Outpatient (BNVA) | payer OTHER, SELFPAY | PROVIDERS: PCP Nurse Practitioner Family; Visit Provider Student in an Organized Health Care Education/Training Program | DX: M25.562 Pain in left knee (principal) | CPT/HCPCS: 73560; 73565 ==

== ENCOUNTER → 2023-04-25 12:24 | Outpatient (BNVA) | payer OTHER, SELFPAY | PROVIDERS: PCP Nurse Practitioner Family; Visit Provider Emergency Medicine | DX: S49.90XA Unspecified injury of shoulder and upper arm, unspecified arm, initial encounter (principal); R39.9 Unspecified symptoms and signs involving the genitourinary system; X58.XXXA Exposure to other specified factors, initial encounter | CPT/HCPCS: 73030; 81000; 87086 ==

== ENCOUNTER 2023-06-17 12:47 | Outpatient (CLI) | payer OTHER, SELFPAY ==
--- NOTE | 2023-06-17 12:49 | MR_ITS ---
WS: [id number] MRI RIGHT SHOULDER, pre and post arthrogram. HISTORY: rotator cuff tear COMPARISON: RIGHT shoulder radiograph 04/25/2023. TECHNIQUE: Multiplanar sequences of the shoulder joint are submitted. MRI images submitted pre joint injection and post joint injection. Prearthrogram: Mild AC joint arthritis with mild encroachment upon the supraspinatus. No subacromial or subdeltoid bursitis. There is no rotator cuff tear. Biceps tendon is in normal position. There is no joint effusion. There is increased T2 signal in the anterior superior labrum. There is also focal globular signal and a small adjacent cyst in the posterior labrum. Post arthrogram: Technically Suboptimal imaging on the postcontrast study. The fat suppression technique was not utilized adequate ly. There is good distention of the joint. Contrast is noted extending into the anterior superior lab rum. Although no contrast extends into the abnormality in the posterior labrum suspicious for continu ed tear into the posterior labrum. No contrast extends external to the joint. IMPRESSION: 1. 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 2. No rotator cuff tear. 3. Labral tear. Labral tear involves the superior, anterior and the posterior labrum.
--- NOTE | 2023-06-17 13:00 | IR_ITS ---
WS: [id number] RIGHT SHOULDER ARTHROGRAM UNDER FLUOROSCOPY. PRIOR TO MRI EVALUATION. HISTORY: labral tear COMPARISON: None available. FLUOROSCOPY TIME: 0min [id number] # of spot films: 2 Procedure, risks and complications were explained to the patient. Consent has been obtained. Under fluoroscopic guidance the skin is marked over the medial superior third of the humeral head, cl eansed with ChloraPrep and anesthetized with lidocaine. 22-gauge spinal needle is inserted to the cor dung of the humeral head. Test injection with Omnipaque reveals the needle is appropriately positioned in the joint. A mixture of 10 cc sterile saline, 5 cc Omnipaque and 0.1 mmol gadolinium are injected under fluoroscopic guidance. Patient tolerated the joint distention well. No complications. IMPRESSION: Uncomplicated RIGHT shoulder joint injection prior to MRI.
== END 2023-06-17 12:48 | disposition home or self-care (01) ==
LOC: RAD 12:47
PROVIDERS: PCP Nurse Practitioner Family; Visit Provider Student in an Organized Health Care Education/Training Program
DX: S43.431A Superior glenoid labrum lesion of right shoulder, initial encounter (principal); X58.XXXA Exposure to other specified factors, initial encounter; M75.101 Unspecified rotator cuff tear or rupture of right shoulder, not specified as traumatic; M19.011 Primary osteoarthritis, right shoulder
CPT/HCPCS: 23350; 73221; 73223; 77002; Q9966

== ENCOUNTER 2023-08-15 09:43 | Emergency (ER) | payer OTHER, SELFPAY ==
[2023-08-15 09:48] VITALS: BP 125/81; PULSE 86; RESP 14; TEMP 36.7; O2SAT 99; BMI 32.4
--- NOTE | 2023-08-15 10:19 | ED_ITS ---
HPI - Extremity Problem General: Chief complaint: Extremity Injury, Lower Stated complaint: Left Leg pain Time Seen by Provider: 08/15/23 09:55 History of Present Illness: Patient presents to the ER complaining of left knee pain. Patient states his knee has been bothering her for months however last night after drinking she tried to step over a mud puddle and pulled something in her knee. Patient states that she went [address] and her knee went the other way and has been hurting significantly ever since. Patient noted she has an ache from her hip down to her knee and then down to mid calf on the lateral region but this is not where the worst pain is the worst pain is on the medial and lateral sides of the knee joint itself. Patient says she is unable to bear weight and rates her pain a 10 out of 10 however she appears in no acute distress upon physical exam. Review of Systems General: Reports: 10 or more systems reviewed and unremarkable except in HPI and below PFSH ED PFSH: Medical History Acid reflux Hypertension Anxiety Abnormal uterine bleeding due to leiomyoma of uterus Surgical History S/P laparoscopic assisted vaginal hysterectomy (LAVH) (~06/03/21) bilateral salpingectomy History of colonoscopy History of gastric bypass sleeve--2020 H/O tubal ligation Family History Sister Cancer melanoma Grandmother Chronic kidney disease (CKD) Paternal Diabetes Paternal Hypertension Paternal Thyroid disease Maternal and paternal Grandfather Diabetes Paternal Hypertension Paternal Thyroid disease Maternal and paternal Father Hypertension Denies family history of CAD (coronary artery disease) Clotting disorder Hyperlipidemia Bleeding disorder Stroke Social History Smoking and tobacco/nicotine status: current some day tobacco/nicotine user Alcohol intake: current Alcohol intake frequency: few times a month Physical Exam Const: COMMON NORMALS: no acute distress, average body habitus, patient oriented x3, no limitations, healthy appearing, alert and well nourished HENMT: COMMON NORMALS: normocephalic, atraumatic, hearing grossly normal bilaterally, external ears normal, EAC's normal, Normal external nose present, moist oral mucous membranes and oropharynx normal HEAD & SCALP: normocephalic and atraumatic NOSE: Normal external nose present EXTERNAL EAR: Yes external ears normal EXTERNAL AUDITORY CANAL: EAC's normal Neck/C-Spine: COMMON NORMALS: no JVD Chest: COMMONS NORMALS: normal inspection of the chest Resp: COMMON NORMALS: normal respiratory effort, No retractions and No use of accessory muscles Cardio: COMMON NORMALS: no JVD, regular rate and regular rhythm RATE: regular rate RHYTHM: regular rhythm GI: COMMON NORMALS: Normal to inspection, nondistended, normoactive bowel sounds present Extremity: NARRATIVE EXTREMITY EXAM: Left knee minimally tender to palpate along lateral and medial collateral ligaments and posterior popliteal fossa. Patient has limited range of motion secondary to pain. No gross crepitus swelling or deformity noted. Neuro: COMMON NORMALS: patient oriented x3 SENSORIUM/ORIENTATION: Yes alert Course Vital Signs: Vital signs: Vital Signs Temperature 98.1 F 08/15/23 12:30 Pulse Rate 86 08/15/23 12:30 Respiratory Rate 14 08/15/23 12:30 Blood Pressure 125/81 08/15/23 12:30 Pulse Oximetry 99 08/15/23 12:30 Oxygen Delivery Me thod Room Air 08/15/23 09:48 MDM - Extremity (Nontraumatic) Medical Decision Making Patient been having chronic problems with her left knee however last night she was drinking stepped over a mud puddle and felt something pop and had immediate pain and now is unable to walk on it. Patient x-ray which revealed no acute findings. Patient was given Toradol 60 mg IM and placed in knee immobilizer. Patient will be referred to Ortho. Patient be given a prescription for hydrocodone and meloxicam. Patient to follow-up with Ortho as advised through appointment by case management. Differential Diagnosis Unlikely herpes zoster, gout, cellulitis, superficial thrombophlebitis, deep venous thrombosis of upper extremity, lower extremity edema or deep vein thrombosis of lower extremity Medical Records I reviewed the patient's medical records. Lab Data I reviewed the patient's lab results. Radiology Impressions Knee X-Ray 08/15/23 10:19 IMPRESSION: No acute findings. All radiology interpretation(s) finalized by discharge Discharge Plan Discharge Patient Disposition: Home Clinical Impression: Acute pain of left knee Condition: Stable Prescriptions: New hydrocodone-acetaminophen 5-325 mg tablet 1 tab PO Q6H PRN (Reason: pain) Qty: 14 0RF meloxicam 7.5 mg tablet 7.5 mg PO .Twice daily Qty: 14 0RF No Action pantoprazole 40 mg tablet,delayed release (DR/EC) 40 mg PO DAILY paroxetine HCl 30 mg tablet 30 mg PO DAILY Discharge Orders: Discharge ED (Routine); Ordered 08/15/23 Ordered By: Trey Pyle Referrals: Hedy Gallardo FNP [Primary Care Provider] - 1 week Patient Instructions: Knee Pain (ED), Knee Immobilizer (ED), Pain Management Activity Restrictions/Additional Instructions: Your x-ray did not show any significant arthritis or acute fractures. You may have a ligamentous injury that will not show up on the x-ray. Please wear your knee immobilizer at all times until seen by Ortho. You have been referred to case management to help get an Ortho appointment. Please take your pain medicine and anti-inflammatory medicine as directed. Coding Level of Care Code ED Clothing Sales Assistant for Onelia Carrillo
--- NOTE | 2023-08-15 10:19 | XRR_ITS ---
PROCEDURE INFORMATION: Exam: XR Left Knee Exam date and time: 08/15/2023 10:36 AM Age: 37 years old Clinical indication: Pain; Knee; Left; Additional info: Trauma pain TECHNIQUE: Imaging protocol: Radiologic exam of the left knee. Views: 3 views. COMPARISON: CR XR knees AP WB w LT lmt ORTH 03/04/2023 3:41 PM FINDINGS: Bones/joints: Normal. Soft tissues: Normal. XR/XR knee LT 3V* [id number] IMPRESSION: No acute findings.
[2023-08-15] MEDS: ketorolac 60 mg/2 mL INJ IM (10:56)
--- NOTE | 2023-08-15 11:08 | PC.PHAR ---
PT STATES TAKES ONLY PANTOPRAZOLE 40 MG DAILY AND PAXIL 30 MG (NEWEST DOSAGE) DAILY. EXT SHOWS BUPROPION SR 150 MG TWICE DAILY WRITTEN 07/27/23. PT STATES NOT PICKED UP. 08/15/23
[2023-08-15 12:30] VITALS: BP 125/81; PULSE 86; RESP 14; TEMP 36.7; O2SAT 99
--- NOTE | 2023-08-16 08:05 | DCPLANNER ---
Message was sent to ortho on 08/16/23 at 0805. Clinic to contact patient.
== END 2023-08-15 12:31 | disposition home or self-care (01) ==
PROVIDERS: Emergency Provider Emergency Medicine; PCP Nurse Practitioner Family
DX: M25.562 Pain in left knee (principal); Z72.0 Tobacco use; I10 Essential (primary) hypertension
CPT/HCPCS: 29530; 73562; 96372; 99284; J1885

== ENCOUNTER → 2024-04-10 13:11 | Outpatient (BNVA) | payer OTHER, SELFPAY | PROVIDERS: Referring Provider Nurse Practitioner Family; Visit Provider Obstetrics & Gynecology | DX: N39.0 Urinary tract infection, site not specified (principal) | CPT/HCPCS: 81000 ==

== ENCOUNTER 2024-04-13 06:59 | Day surgery (SDC) | payer OTHER, SELFPAY ==
[2024-04-13] VITALS (10 sets, daily range): BP systolic 121–148; BP diastolic 64–108; PULSE 67–98; RESP 14–20; TEMP 36.2–36.6; O2SAT 97–100; BMI 33.7
--- NOTE | 2024-04-13 04:56 | W.PM.OPSFHP ---
Same Day Surgery H&P Indication for Procedure/HPI DATE OF PROCEDURE: April 13, 2024 CHIEF COMPLAINT/INDICATIONFOR SURGICAL PROCEDURE: Left Bartholin's abscess PREOP DIAGNOSIS: left Bartholin's abscess PLANNED PROCEDURE: Operation Date: 04/13/24 08:35 Proposed Procedures p Bartholin's Cyst Excision 16030,N75.0(Not Applicable) - Jeremy Kirkland MD 38 y.o. h/o hysterectomy, BSO with left Bartholin's abscess Medications/Allergies* Home Medications Medication Instructions Recorded Confirmed Type pantoprazole 40 mg tablet,delayed 40 mg PO DAILY 10/29/22 04/12/24 History release paroxetine HCl 30 mg tablet 30 mg PO DAILY 08/15/23 04/12/24 History Allergies/Adverse Reactions Allergy/AdvReac Type Severity Reaction Status Date / Time hydrogen peroxide Allergy Intermediate turns skin Verified 04/10/24 08:46 white and breaks out Pertinent History/Comorbid Conditions* Medical History (Updated 04/13/24 @ 04:51 by Jeremy Kirkland MD) Acid reflux Hypertension Anxiety Abnormal uterine bleeding due to leiomyoma of uterus Surgical History (Updated 07/20/21 @ 19:49 by Nohemi Zuniga MD) S/P laparoscopic assisted vaginal hysterectomy (LAVH) (~06/03/21) bilateral salpingectomy History of colonoscopy History of gastric bypass sleeve--2019 H/O tubal ligation Family History (Updated 04/17/21 @ 14:52 by Floridalma Parker LPN) Diabetes Grandmother Paternal Grandfather Paternal Chronic kidney disease (CKD) Grandmother Paternal Cancer Sister melanoma Hypertension Grandmother Paternal Grandfather Paternal Father Thyroid disease Grandmother Maternal and paternal Grandfather Maternal and paternal Denies family history of CAD (coronary artery disease) Clotting disorder Hyperlipidemia Bleeding disorder Stroke Social History Smoking and tobacco/nicotine status: never used tobacco/nicotine Pertinent Exam Findings alert, oriented x 3, clear to auscultation bilaterally and regular rate & rhythm Recommendations Surgery/Procedure today Coding Level of Care Code Acute Code for Chg Fwd Time Spent (min) 20
[2024-04-13] MEDS: sodium chloride 0.9% 1,000 ML 30 ML IV (07:16)
[2024-04-13] MEDS: scopolamine 1.5 Patch 1 PATCH TRANSDERMA (07:35)
--- NOTE | 2024-04-13 07:36 | ANES.PREANE2 ---
Pre-Anesthetic Assessment Height/Weight: Height 1.63 m Weight 89.358 kg Temp Pulse Resp BP Pulse Ox O2 Del Method 97.2 F L 70 18 148/97 99 Room Air 04/13/24 07:12 04/13/24 07:12 04/13/24 07:12 04/13/24 07:12 04/13/24 07:12 04/13/24 07:14 Preop Diagnosis: left Bartholin's abscess Operation Date: 04/13/24 08:35 Proposed Procedures p Bartholin's Cyst Excision [id number],N75.0(Not Applicable) - Jeremy Kirkland MD Familial anesthetic complications: None Was Beta Marco taken within 24 hours: N/A Was Clonidine taken within 24 hours: N/A Last intake: Intake Last Liquid Date 04/12/24 Last Liquid Time 21:00 Last Solid Date 04/12/24 Last Solid Time 18:00 Social No alcohol and No tobacco Exam alert, oriented x 3, clear to auscultation bilaterally and regular rate & rhythm Airway Mallampati: Class II Dentition: other ( My teeth are bad, i had the gastric sleeve so i don't get the proper nutrition ) GI Gastroesophageal Reflux Disease Significant per patient, does sometimes occur with recumbent positioning even on empty stomach Anesthetic Plan ASA status: 2 Anesthesia: General Other: RSI for hx significant reflux Risk of > 500 ml blood loss (7ml/kg in children): No Medications/Allergies Home Medications Medication Instructions Recorded Confirmed Last Taken Type pantoprazole 40 mg tablet,delayed 40 mg PO DAILY 10/29/22 04/12/24 04/12/24 History release paroxetine HCl 30 mg tablet 30 mg PO DAILY 08/15/23 04/12/24 04/12/24 History Allergies Allergy/AdvReac Type Severity Reaction Status Date / Time hydrogen peroxide Allergy Intermediate turns skin Verified 04/13/24 07:07 white and breaks out Current Medications Generic Name Dose Route Start Last Admin Trade Name Toñito PRN Reason Stop Dose Admin Sodium Chloride 1,000 mls @ 30 mls/hr 04/13/24 07:15 04/13/24 07:16 Sodium Chloride 0.9% IV 04/14/24 07:14 30 mls/hr .Q24H LM Administration PFSH Anesthesia Medical History Acid reflux Hypertension Anxiety Abnormal uterine bleeding due to leiomyoma of uterus Surgical History S/P laparoscopic assisted vaginal hysterectomy (LAVH) (~06/03/21) bilateral salpingectomy History of colonoscopy History of gastric bypass sleeve--2019 H/O tubal ligation Family History Sister Cancer melanoma Grandmother Chronic kidney disease (CKD) Paternal Diabetes Paternal Hypertension Paternal Thyroid disease Maternal and paternal Grandfather Diabetes Paternal Hypertension Paternal Thyroid disease Maternal and paternal Father Hypertension Denies family history of CAD (coronary artery disease) Clotting disorder Hyperlipidemia Bleeding disorder Stroke Social History Smoking and tobacco/nicotine status: never used tobacco/nicotine Data Anesthesia Cardiac Studies: No Data to Display
--- NOTE | 2024-04-13 07:38 | W.PM.OPSUD ---
Surgery/Procedure H&P Update DATE OF PROCEDURE: April 13, 2024 DATE H&P PERFORMED: 04/10/24 H&P UPDATE INFORMATION: I have reviewed H&P completed within last 30 days, I have examined patient prior to procedure and No changes to prior documentation PREOP DIAGNOSIS: left Bartholin's abscess PLANNED PROCEDURE: Operation Date: 04/13/24 08:35 Proposed Procedures p Bartholin's Cyst Excision [id number],N75.0(Not Applicable) - Jeremy Kirkland MD
[2024-04-13] MEDS: fentaNYL 50 mcg/mL INJ 2mL IVP (09:00)
--- NOTE | 2024-04-13 09:30 | PM.OP ---
Operative Report Date of procedure: April 13, 2024 Pre-op diagnosis: Left Bartholin's abscess Post-op diagnosis: same Post-op findings: Left Bartholin?s abscess Had spontaneously drained the day before this procedure Cavity still present, measured approximately 4 cm Procedure done: incision, drainage and packing of left Bartholin?s abscess Implants: none Specimens removed/disposition: none Surgeon: Jeremy Kirkland MD Anesthesia: MAC Estimated blood loss (mL): 0 Complications: none Findings: Left Bartholin?s abscess Had spontaneously drained the day before this procedure Cavity still present, measured approximately 4 cm Condition: stable Disposition: PACU Brief History: 38 y.o. Seen April 11, 2024 with enlarged, tender left Bartholin?s abscess Patient was scheduled for I&D and packing Abscess spontaneously drained on April 12, 2024 Procedure: Informed consent was obtained for incision, drainage, and packing of left Bartholin?s abscess. The patient was taken to the OR and placed on table. Anesthesia was induced. Patient was then placed in dorsolithotomy position. The perineum was prepped and draped in the usual sterile fashion. A 4 cm left Bartholin?s abscess cavity was identified. A 2 cm incision was made on the surface of the abscess cavity. Small amount of purulent material was seen. Cultures had already been done in clinic. The abscess cavity was explored and cleared. Betadine, 20 cc, was used to irrgate the abscess cavity. A 1-inch iodoform was then used to pack the abscess cavity. No bleeding was seen. The patient was then placed supine, awakened, and taken to the RR in good condition. Postoperative condition: good Blood loss: 0 cc Complications: none Sponge and instrument counts correct x two
--- NOTE | 2024-04-13 10:15 | ANE.PACU2 ---
Inpatient post-anesthesia follow up: Airway intact: Yes Vital signs: Temperature 97.2 F Pulse Rate 67 Respiratory Rate 18 Blood Pressure 126/96 Pulse Oximetry 97 Oxygen Delivery Me thod Room Air Oxygen Flow Rate Fraction of Inspir ed Oxygen Hydration adequate: Yes Nausea and vomiting: No Pain level: 1 Mental status: Baseline
== END 2024-04-13 10:15 | disposition home or self-care (01) ==
PROVIDERS: PCP Nurse Practitioner Family; Visit Provider Obstetrics & Gynecology
PROC: (CPT 56740; principal; 2024-04-13 08:25)
DX: N75.1 Abscess of Bartholin's gland (principal); I10 Essential (primary) hypertension; K21.9 Gastro-esophageal reflux disease without esophagitis; Z88.3 Allergy status to other anti-infective agents; Z79.899 Other long term (current) drug therapy; Z98.84 Bariatric surgery status; Z90.710 Acquired absence of both cervix and uterus
CPT/HCPCS: 56420; J0330; J1100; J1200; J1885; J2250; J2405; J2704; J3010; J7030

== ENCOUNTER → 2024-04-19 09:37 | Outpatient (BNVA) | payer OTHER, SELFPAY | PROVIDERS: PCP Nurse Practitioner Family; Visit Provider Obstetrics & Gynecology | DX: R30.0 Dysuria (principal) | CPT/HCPCS: 81000; 87086 ==

== ENCOUNTER → 2024-06-18 17:27 | Outpatient (BNVA) | payer OTHER, SELFPAY | PROVIDERS: PCP Nurse Practitioner Family | DX: R39.9 Unspecified symptoms and signs involving the genitourinary system (principal) | CPT/HCPCS: 81000 ==

== ENCOUNTER → 2024-07-31 12:23 | Outpatient (BNVA) | payer OTHER, SELFPAY | PROVIDERS: PCP Nurse Practitioner Family; Visit Provider Emergency Medicine | DX: R19.7 Diarrhea, unspecified (principal) | CPT/HCPCS: 87400 ==

== ENCOUNTER → 2024-10-17 08:06 | Outpatient (BNVA) | payer OTHER, SELFPAY | PROVIDERS: PCP Nurse Practitioner Family; Visit Provider Student in an Organized Health Care Education/Training Program | DX: M25.562 Pain in left knee (principal); M70.62 Trochanteric bursitis, left hip; M76.32 Iliotibial band syndrome, left leg | CPT/HCPCS: 73560; 73565 ==

== ENCOUNTER → 2024-11-09 18:03 | Outpatient (BNVA) | payer OTHER, SELFPAY | PROVIDERS: PCP Nurse Practitioner Family; Visit Provider Family Medicine | DX: N39.0 Urinary tract infection, site not specified (principal) | CPT/HCPCS: 81000 ==

== ENCOUNTER 2025-02-28 15:56 | Observation (INO) | payer OTHER, SELFPAY ==
[2025-02-28] VITALS (8 sets, daily range): BP systolic 110–151; BP diastolic 60–92; PULSE 77–118; RESP 16; TEMP 36.7; O2SAT 94–100; BMI 34.0; BMI 35.1
--- NOTE | 2025-02-28 16:43 | USR_ITS ---
PROCEDURE INFORMATION: Exam: US Duplex Left Lower Extremity Veins, Limited Exam date and time: 02/28/2025 4:55 PM Age: 39 years old Clinical indication: Pain; Leg, lower; Left; Additional info: Leg swelling TECHNIQUE: Imaging protocol: Real-time duplex ultrasound of the left extremity with 2-D christie scale, color Doppler flow and spectral waveform analysis including responses to compression and other maneuvers (when performed) with image documentation. Limited exam focused on the left lower extremity veins. COMPARISON: US transvaginal [id number] 05/08/2021 8:11 AM FINDINGS: Left deep veins: There is a deep venous thrombosis involving the left popliteal vein and extending to the distal femoral vein. Remaining deep venous structures are normal. Superficial veins: Nonocclusive superficial venous thrombus involving the great saphenous vein at the mid thigh extending just below the knee. Soft tissues: Unremarkable. Other findings: Peroneal is noncompressible extending to the mid posterior calf. US/CV venous duplex [facility] [id number] IMPRESSION: Deep venous and superficial venous thrombosis as above
--- NOTE | 2025-02-28 18:10 | W.ED.EXTPRO ---
HPI - Extremity Problem General: Chief complaint: Extremity Problem,Nontraumatic Stated complaint: doc reffal for possible clot Time Seen by Provider: 02/28/25 17:22 Source: patient Mode of arrival: ambulatory Limitations: no limitations History of Present Illness: Patient is a nice 39-year-old female who presents to ED today with complaint of left lower extremity pain and swelling that she initially began noticing 2 weeks ago. She states she was seen by her PCP and referred to the emergency department due to concerns for DVT. She has no previous history of DVT/PE however reports several family members have. Patient states over the past several days she has noticed an increased resting heart rate which she states is abnormal for her. She has noticed shortness of breath at rest that significantly worsens with ambulation. 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 She is not complaining of hemoptysis. She was tachycardic upon arrival in triage however pulse was in the 80s at rest during my exam. Patient denies any recent surgeries. She is not on any type of hormonal therapy. Denies any long car rides/plane rides. MD Complaint: extremity swelling Onset (ago): week(s) Pain Consistency: constant Location: left and lower extremity Radiation: none Relieving factors: nothing Exacerbating factors: nothing Associated symptoms: Reports no associated symptoms and chest pain; Deny fever(s) or rash Related Data Home Medications ?Medication ?Instructions ?Recorded ?Confirmed pantoprazole 40 mg tablet,delayed 40 mg PO DAILY 10/29/22 11/09/24 release paroxetine HCl 30 mg tablet 30 mg PO DAILY 08/15/23 11/09/24 Allergies Allergy/AdvReac Type Severity Reaction Status Date / Time hydrogen peroxide Allergy Intermediate turns skin Verified 02/28/25 16:08 white and breaks out Review of Systems Const: Denies: fever(s), chills, body aches, fatigue or malaise Card: Reports: chest pain, pre-syncope and dyspnea on exertion; Denies: palpitations, irregular heart rhythm, edema, swelling of feet/ankles or orthopnea Resp: Reports: dyspnea; Denies: productive cough, non-productive cough or hemoptysis GI: Denies: abdominal pain Musc: Reports: extremity pain and extremity swelling; Denies: neck pain, back pain, joint pain or joint swelling Skin/Breast: Denies: rash Neuro: Denies: numbness in extremities, weakness in extremities, sensory changes or difficulty walking [facility] ED PFSH: Medical History Acid reflux Hypertension Anxiety Abnormal uterine bleeding due to leiomyoma of uterus Surgical History S/P laparoscopic assisted vaginal hysterectomy (LAVH) (~06/03/21) bilateral salpingectomy History of colonoscopy History of gastric bypass sleeve--2020 H/O tubal ligation Family History Sister Cancer melanoma Grandmother Chronic kidney disease (CKD) Paternal Diabetes Paternal Hypertension Paternal Thyroid disease Maternal and paternal Grandfather Diabetes Paternal Hypertension Paternal Thyroid disease Maternal and paternal Father Hypertension Denies family history of CAD (coronary artery disease) Clotting disorder Hyperlipidemia Bleeding disorder Stroke Social History Smoking and tobacco/nicotine status: current every day tobacco/nicotine user Physical Exam Const: COMMON NORMALS: no acute distress, average body habitus, patient oriented x3, no limitations, healthy appearing, alert and well nourished Resp: COMMON NORMALS: normal respiratory effort and clear to auscultation bilaterally AUSCULTATION: clear to auscultation bilaterally Cardio: COMMON NORMALS: regular rate and regular rhythm RATE: regular rate RHYTHM: regular rhythm Extremity: COMMON NORMALS: full ROM and capillary refill normal NARRATIVE EXTREMITY EXAM: significant L LE calf edema when compared to R; no erythema/warmth present; no streaking; distal pulses intact GENERAL: Yes normal exam except as noted Neuro: COMMON NORMALS: patient oriented x3, moves all extremities, no focal motor deficits and no sensory deficits noted SENSORIUM/ORIENTATION: Yes alert Skin: COMMON NORMALS: no rashes or lesions noted GENERAL SKIN EXAM: no rashes or lesions noted Course Consultations: Consultation #1: Dr. Dexter-accepts hospitalization, recommending echo, oral apixaban, he will order hypercoagulability labs Vital Signs: Vital signs: Vital Signs Temperature 98.0 F 02/28/25 16:04 Pulse Rate 77 02/28/25 20:00 Blood Pressure 139/88 02/28/25 20:00 Pulse Oximetry 97 02/28/25 20:00 Oxygen Delivery Me thod Room Air 02/28/25 20:00 MDM - Extremity (Nontraumatic) Medical Decision Making Patient is a nice 39-year-old female here for complaints of left leg pain and swelling as well as shortness of breath and elevated heart rate. She was found to have an acute DVT involving her popliteal and distal femoral veins. CTA imaging obtained due to history. This shows bilateral occlusive and nonocclusive PEs with evidence of right heart strain. Her EKG does not show obvious evidence of right heart strain. Blood work here showing a normal troponin. BNP is mildly elevated at 368. Patient states she becomes significantly dyspneic and lightheaded with ambulation. I think given her young age and unprovoked clot burden, she most likely would benefit from hospitalization. She does report several family members who have developed blood clots throughout their life. Suspicion for hereditary hypercoagulability state. Spoke to Dr. Martinez who agrees with care plan. Spoke to Dr. Dexter, hospitalist, for admission. He is recommending starting the patient on oral apixaban. Medical Records I reviewed the patient's medical records. Lab Data I reviewed the patient's lab results. 02/28/25 18:30 02/28/25 18:30 Radiology Impressions Venous Duplex 02/28/25 16:43 IMPRESSION: Deep venous and superficial venous thrombosis as above Chest CTA 02/28/25 18:23 IMPRESSION: 1. Bilateral occlusive and nonocclusive pulmonary emboli involved within all lobes of the lung. Evidence of right heart strain. 2. The lungs are relatively clear. 3. T4 vertebral body sclerotic lesion. Correlation with prior examination is recommended. Stable then it is likely benign. ADDENDUM: 02/28/252027 THIS REPORT CONTAINS FINDINGS THAT MAY BE CRITICAL TO PATIENT CARE. The findings were verbally communicated via message with TANIA VASQUEZ at 8:26 PM CDT on 02/28/2025. The findings were acknowledged and understood. Laboratory Results WBC 9.85 10^3/uL (3.29-11.43) 02/28/25 18:30 RBC 4.07 10^6/uL (3.85-5.65) 02/28/25 18:30 Hgb 10.60 g/dL (11.27-16.99) L 02/28/25 18:30 Hct 34.3 % (36-47) L 02/28/25 18:30 MCV 84.3 fl (85-98) L 02/28/25 18:30 MCH 26.0 pg (27-33) L 02/28/25 18: MCHC 30.9 g/dL (30-55) 02/28/25 18: RDW 21.4 % (12.1-15.1) H 02/28/25 18: Plt Count 173 10^3/cmm (157-399) 02/28/25 18:30 MPV 9.9 fL (7.4-10.4) 02/28/25 18: Neut % (Auto) 46.4 % 02/28/25 18: Lymph % (Auto) 44.8 % 02/28/25 18: [place] % (Auto) 7.4 % 02/28/25 18: Eos % (Auto) 0.5 % 02/28/25 18: Baso % (Auto) 0.6 % 02/28/25 18:30 Neut # (Auto) 4.57 10^3/uL (1.8-7.7) 02/28/25 18: Lymph # (Auto) 4.4 10^3/uL (0.8-4.8) 02/28/25 18:30 [place] # (Auto) 0.7 10^3/uL (0.2-0.9) 02/28/25 18: Eos # (Auto) 0.1 10^3/uL (0.0-0.8) 02/28/25 18: Baso # (Auto) 0.1 10^3/uL (0.0-0.1) 02/28/25 18: Nucleated RBC % (auto) 0 % 02/28/25 18: Nucleated RBCs # 0.0 /100WBC 02/28/25 18:30 Sodium 139 mmol/L (136-145) 02/28/25 18:30 Potassium 3.2 mmol/L (3.5-5.1) L 02/28/25 18: Chloride 102 mmol/L (98-107) 02/28/25 18: Carbon Dioxide 25 mmol/L (22-29) 02/28/25 18:30 Anion Gap 15.2 (5-19) 02/28/25 18:30 BUN 14 mg/dL (6-20) 02/28/25 18:30 Creatinine 0.9 mg/dL (0.5-0.9) 02/28/25 18:30 GFR Calculation 69.3 mL/min (90-130) L 02/28/25 18:30 Glucose 93 mg/dL (65-115) 02/28/25 18:30 Calculated Osmolality 288 mOsm/kg (285-295) 02/28/25 18:30 Calcium 7.9 mg/dL (8.5-10.5) L 02/28/25 18:30 Total Bilirubin 0.5 mg/dL (0.15-1.2) 02/28/25 18:30 AST 37 U/L (0-32) H 02/28/25 18:30 ALT 14 U/L (0-33) 02/28/25 18:30 Alkaline Phosphatase 199 U/L (35-105) H 02/28/25 18:30 Troponin T Baseline < 6 ng/L (0-10) 02/28/25 18:30 NT-Pro-B Natriuret Pep 368 pg/mL (0-125) H 02/28/25 18:30 Total Protein 6.0 g/dL (6.6-8.7) L 02/28/25 18:30 Albumin 2.9 g/dL (3.5-5.2) L 02/28/25 18:30 Globulin 3.1 g/dL (1.3-4.6) 02/28/25 18:30 All radiology interpretation(s) finalized by discharge Discharge Plan Discharge Patient Disposition: Admitted As Inpatient Clinical Impression: Bilateral pulmonary embolism, Cor pulmonale, acute, Acute deep vein thrombosis (DVT) of left lower extremity Condition: Stable Coding Level of Care Code ED Mushroom Packer for Onelia Carrillo
--- NOTE | 2025-02-28 18:23 | CTR_ITS ---
PROCEDURE INFORMATION: Exam: CTA Chest With Contrast Exam date and time: 02/28/2025 7:12 PM Age: 39 years old Clinical indication: Shortness of breath; Additional info: SOB, known L le dvt TECHNIQUE: Imaging protocol: Computed tomographic angiography of the chest with contrast. Exam focused on the arteries. 3D rendering (Not supervised by radiologist): MIP and/or 3D reconstructed images were created by the technologist. Radiation optimization: All CT scans at this facility use at least one of these dose optimization techniques: automated exposure control; mA and/or kV adjustment per patient size (includes targeted exams where dose is matched to clinical indication); or iterative reconstruction. Contrast material: OMNIPAQUE 350; Contrast volume: 69 ml; Contrast route: INTRAVENOUS (IV); COMPARISON: MR shoulder RT wo/w con [id number] 06/17/2023 12:57 PM RADIATION DOSE METRICS: Total DLP (mGy-cm): 356.81 FINDINGS: Pulmonary arteries: There are bilateral occlusive and nonocclusive pulmonary emboli to the lobar and segmental branches of the bilateral lungs involving all lobes the RV/LV ratio appears to be slightly greater than 1.0 and is concerning for right heart strain. Aorta: Unremarkable. No aortic aneurysm. No aortic dissection. Lungs: Unremarkable. No consolidation. No masses. Pleural spaces: Unremarkable. No pneumothorax. No pleural effusion. Heart: Unremarkable. No cardiomegaly. No pericardial effusion. Lymph nodes: Unremarkable. No enlarged lymph nodes. Stomach: Postoperative changes of the stomach. Bones/joints: T4 vertebral body sclerotic lesion posteriorly. Otherwise preserved vertebral body heights and alignment. Soft tissues: Unremarkable. CT/CT angio chest PE protcl [id number] IMPRESSION: 1. Bilateral occlusive and nonocclusive pulmonary emboli involved within all lobes of the lung. Evidence of right heart strain. 2. The lungs are relatively clear. 3. T4 vertebral body sclerotic lesion. Correlation with prior examination is recommended. Stable then it is likely benign.
--- NOTE | 2025-02-28 18:31 | ECG_ITS ---
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
[2025-02-28 18:37] LABS: Hematocrit 34.3 % (36-47); Hemoglobin 10.60 g/dL (11.27-16.99); Mean Corpuscular HGB Conc 30.9 g/dL (30-55); Mean Corpuscular Hemoglobin 26.0 pg (27-33); Mean Corpuscular Volume 84.3 fl (85-98); Nucleated Red Blood Cells % 0 %; Platelet Count 173 10^3/cmm (157-399); Red Blood Count 4.07 10^6/uL (3.85-5.65); White Blood Count 9.85 10^3/uL (3.29-11.43)
[2025-02-28 18:58] LABS: Troponin(5th) Baseline < 6 ng/L (0-10)
[2025-02-28 19:06] LABS: Alanine Aminotransferase 14 U/L (0-33); Albumin Level 2.9 g/dL (3.5-5.2); Alkaline Phosphatase 199 U/L (35-105); Aspartate Amino Transferase 37 U/L (0-32); Blood Urea Nitrogen 14 mg/dL (6-20); Calcium 7.9 mg/dL (8.5-10.5); Carbon Dioxide 25 mmol/L (22-29); Chloride 102 mmol/L (98-107); Creatinine Clr Calc Pharmacy 86.9361; Globulin 3.1 g/dL (1.3-4.6); Glucose 93 mg/dL (65-115); NT Pro B Type Natriuretic Pept 368 pg/mL (0-125); Osmolality Calculated 288 mOsm/kg (285-295); Sodium 139 mmol/L (136-145); Total Protein 6.0 g/dL (6.6-8.7)
[2025-02-28 19:10] LABS: Slide Review Slide Review Perform
[2025-02-28] MEDS: iohexol 350 mg/mL 500 mL Btl (per mL) IV (19:15)
[2025-02-28 19:41] LABS: Anion Gap 15.2 (5-19); Potassium 3.2 mmol/L (3.5-5.1)
--- NOTE | 2025-02-28 20:06 | USCV_ITS ---
Chanell Gibbs Age: 39 Gender: F : 1985 Exam Date: 02/28/2025 22:09 Ordering Phys: Nemo Lester Technologist: JESUS [place]am Location[place] [facility] [place] Indication: bilateral pulmonary emboli, evaluate for right heart strain BP: 139 / 88 HR: 77 Rhythm: Sinus Technical Quality: Adequate MEASUREMENTS (Male / Female) Normal Values 2D ECHO LV Diastolic Diameter PLAX 3.6 cm 4.2 - 5.9 / 3.9 - 5.3 cm IVS Diastolic Thickness 1.1 cm 0.6 - 1.0 / 0.6 - 0.9 cm IVS Systolic Thickness 1.4 cm LVPW Diastolic Thickness 1.1 cm 0.6 - 1.0 / 0.6 - 0.9 cm LVPW Systolic Thickness 1.7 cm LVOT Diameter 1.6 cm LV Ejection Fraction 2D Teich 70.7 % LV Ejection Fraction MOD 4C 63.0 % LV Ejection Fraction MOD 2C 71.7 % LV Ejection Fraction 2C AL 73.8 % LA Diameter 3.0 cm Aorta at Sinotubular Diameter 2.5 cm IVC Diameter 1.9 cm M-MODE LA Ao Ratio MM 1.3 AV Cusp Separation MM 1.9 cm DOPPLER AV Peak Velocity 158.0 cm/s LVOT Peak Velocity 134.0 cm/s AV Area Cont Eq vti 2.3 cm squared AV Area Cont Eq pk 1.7 cm squared MV Peak Velocity 103.0 cm/s MV Area PHT 3.2 cm squared Mitral E to A Ratio 1.1 TV Peak Velocity 246.0 cm/s TR Peak Velocity 254.0 cm/s TR Peak Gradient 25.8 mmHg TV Peak E Velocity 53.0 cm/s PV Peak Velocity 88.0 cm/s FINDINGS Left Ventricle Left ventricle is normal in size. LV systolic function is normal with EF of 60 to 65%. No regional wall motion abnormalities are seen. Right Ventricle Normal in size and function Right Atrium Normal in size Left Atrium Normal in size Mitral Valve Structurally normal mitral valve. Mild mitral regurgitation Aortic Valve Structurally normal aortic valve. No significant stenosis or regurgitation Tricuspid Valve Mild tricuspid regurgitation. Pulmonary artery systolic pressure is normal. Pulmonic Valve Not well visualized Pericardium Normal Aorta Normal in size IVC Normal in size CONCLUSIONS LV systolic function is normal with EF of 60-65%. Mild mitral regurgitation. Mild tricuspid regurgitation. No comparison studies are available Kyle Caicedo MD (Electronically Signed) Final Date: 01 March 2025 09:13 S
[2025-02-28 20:39] LABS: Troponin 5 2HR < 6.0 ng/L (0-10); Troponin 5 2HR Delta 0 ABS# (0-10)
--- NOTE | 2025-02-28 20:55 | ECG_ITS ---
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
--- NOTE | 2025-02-28 21:52 | PM.HP ---
Providers/Chief Complaint Admitting Physician: Kofi Dexter MD Primary Care Provider: DELORIS Gu Chief Complaint: DrTerrance sent in for possible clot in the leg History of Present Illness Chanell Gibbs is a 39 year old female with history of obesity status post gastric sleeve 2020 states that she has had dyspnea on exertion shortness of breath and cough starting 2 weeks ago. Began as swelling in the feet left greater than right both legs swelled if she was sitting but with activity right leg with improved and left leg would worsen. 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 She smokes 10 cigarettes a day for the last 3 years states she started because she a smoker. She also drinks 10 shots of fireball a night because her drinks heavily. Patient notes that her dad who is a smoker has had clots in his legs or lung paternal grandma maternal grandma and maternal grandpa all had clots in her legs or lung. Patient had 3 children full-term no miscarriages. She had hysterectomy last year at age 38 due to menorrhagia. EKG shows sinus rhythm borderline LAE Review of Systems Narrative: General positive for fevers chills weight she states is stable recently but her max weight was 297 2020 she dropped as low as 178 last year then gained weight back to 192. She states she eats 3 slice of pizza a day drinks 10 shots of fireball a night. She does not drink any other calories such as sugared sodas, milk or juice. 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 Medications/Allergies Home Medications ?Medication ?Instructions ?Recorded ?Confirmed ?Last Taken ?Type pantoprazole 40 mg tablet,delayed 40 mg PO DAILY 10/29/22 11/09/24 04/12/24 History release paroxetine HCl 30 mg tablet 30 mg PO DAILY 08/15/23 11/09/24 04/12/24 History Allergies Allergy/AdvReac Type Severity Reaction Status Date / Time hydrogen peroxide Allergy Intermediate turns skin Verified 02/28/25 16:08 white and breaks out PFSH Acute PFSH: Medical History (Updated 02/28/25 @ 22:03 by Kofi Dexter MD) Family history of deep vein thrombosis Tobacco abuse Acid reflux Hypertension Anxiety Abnormal uterine bleeding due to leiomyoma of uterus Surgical History S/P laparoscopic assisted vaginal hysterectomy (LAVH) (~06/03/21) bilateral salpingectomy History of colonoscopy History of gastric bypass sleeve--2019 H/O tubal ligation Family History Sister Cancer melanoma Grandmother Chronic kidney disease (CKD) Paternal Diabetes Paternal Hypertension Paternal Thyroid disease Maternal and paternal Grandfather Diabetes Paternal Hypertension Paternal Thyroid disease Maternal and paternal Father Hypertension Denies family history of CAD (coronary artery disease) Clotting disorder Hyperlipidemia Bleeding disorder Stroke Social History (Updated 02/28/25 @ 22:00 by Kofi Dexter MD) Smoking and tobacco/nicotine status: current every day tobacco/nicotine user cigarettes Packs smoked per day: 0.5 Years cigarettes smoked: 3 Alcohol intake: current Alcohol intake frequency: 3 or more drinks per day Alcohol type: hard liquor Alcohol use comment: 10 shots of fireball daily Substance/Drug Use: never Additional social history: She works at [employer] in she wants full [employer] and her next of kin is Luis Gibbs her . He is not present but patient and I discussed this today on February 28, 2025 Vitals/I&O/Wt Last Vital Signs Temp 98.0 F 02/28/25 16:04 Pulse 77 02/28/25 20:00 BP 139/88 02/28/25 20:00 Pulse Ox 97 02/28/25 20:00 O2 Del Method Room Air 02/28/25 20:00 Weight last 48 hrs Weight 87.09 kg Physical Exam Narrative: General Well-developed well-nourished female in no acute cardiopulmonary stress O2 sat 9 9% CV regular rate and rhythm Lungs clear to auscultation bilaterally Abdomen positive bowel tones soft nontender Back no tenderness in the CVA or back with percussion Calves left leg enlarged versus right with 2+ edema left right side trace Data 02/28/25 18:30 02/28/25 18:30 CTA Chest: Radiologist's impression: 1. Bilateral occlusive and nonocclusive pulmonary emboli involved within all lobes of the lung. Evidence of right heart strain. 2. The lungs are relatively clear. 3. T4 vertebral body sclerotic lesion. Correlation with prior examination is recommended. Stable then it is likely benign. A&P Assessment and plan 1. Bilateral pulmonary embolism: Will treat with apixaban 10 mg twice a day for 7 days then 5 mg twice a day for at least 9 months. The heparin protocol here has been overshooting PTT to greater than 250 so I am avoiding that option for now 2. Acute deep vein thrombosis (DVT) of left lower extremity: As above left leg DVT up to the distal femoral 3. Tobacco abuse: Patient counseled regarding smoking cessation as well as tobacco and nicotine added risk for DVT and she wants to quit smoking. She thinks she does not need a nicotine patch but will let me know if that changes 4. Family history of deep vein thrombosis: Will check factor V Leiden, protein C&S, Antithrombin 3 deficiency and prothrombin mutation 5. Anemia: Heavy drinker with melena will check iron studies and treat with Carafate Pepcid and Protonix for now 6. Melena: As above may need iron infusion PDMP PDMP Reviewed: Not Reviewed Attestations Medical Necessity Statement*: Patient admitted to the hospital for observation given heavy clot burden will need an echocardiogram to determine if safe for her to be discharged. Anticipate hospitalization less than 2 midnights Coding Level of Care Code 19866 Diagnoses Bilateral pulmonary embolism I26.99 Acute deep vein thrombosis (DVT) of left lower extremity I82.402 Tobacco abuse Z72.0 Family history of deep vein thrombosis Z82.49 Anemia D64.9 Melena K92.1 Time Spent (min) 70
[2025-03-01] VITALS (9 sets, daily range): BP systolic 112–131; BP diastolic 57–91; PULSE 73–123; RESP 15–17; TEMP 36.6–37.1; O2SAT 92–97
[2025-03-01 00:27] LABS: Iron 19 ug/dL (37-145); Total Iron Binding Capacity 196 mcg/dl; Unsaturated Iron Binding 177 ug/dL (112-347)
--- NOTE | 2025-03-01 00:51 | ECG_ITS ---
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
[2025-03-01 01:35] LABS: Troponin 5 6HR 7.25 ng/L (0-10); Troponin 5 6HR Delta 1.25001 ng/L (0-12)
--- NOTE | 2025-03-01 08:18 | CT_ITS ---
WS: [id number] CT ABDOMEN PELVIS TECHNIQUE: Noncontrast CT of the abdomen and pelvis with coronal and sagittal reformatted images. CLINICAL INFORMATION: bilateral pulmonary embolism, dvt COMPARISON: None. DLP: 815.[address] scans at [facility] use at least one of these dose optimization techniques: automated exposure control; mA and/or kV adjustment per patient size (includes targeted exams where dose is matched to clinical indication); or iterative reconstruction. FINDINGS: Prior gastric bypass. Tiny esophageal hernia. Food products in the stomach and duodenum. No visualized evidence of high-grade gastric obstruction. Lung bases are well aerated. Normal noncontrast liver and spleen. Normal noncontrast pancreas. Adrenal glands are normal. Tiny fat-containing umbilical hernia. Gallbladder is contracted. Cystic lesion in the RIGHT adnexa/ovary measuring 4.5 x 4.2 cm. This could be followed up with ultrasound. Normal caliber abdominal aorta. Prior hysterectomy. Mild diffuse wall thickening of the colon which is decompressed more prominent in the hepatic flexure and transverse colon. Recommend correlation for infectious or inflammatory colitis. No other suspicious findings. CT/CT abdomen pelvis wo con [id number] IMPRESSION: 1. Prior gastric bypass. No evidence of high-grade gastric obstruction. Few pr oducts in the stomach and duodenum. 2. RIGHT adnexal/ovarian cyst measuring 4.5 x 4.2 cm. This could followed up w [facility] ultrasound. 3. Mild diffuse wall thickening of the colon more prominent in the hepatic fle xure and proximal transverse colon. This may be incidental but recommend correl ation for infectious or inflammatory colitis. 4. Prior hysterectomy.
[2025-03-01] MEDS: ferrous sulfate EC 325 mg Tablet PO ×2 (08:31→17:34)
--- NOTE | 2025-03-01 08:47 | PC.PHAR ---
Pt states protonix changed to bid and Paroxetine is being changed to something different. Will verify information with [facility] when they open at 9am. 03/01/25
--- NOTE | 2025-03-01 10:04 | PC.CHAP ---
Pastoral Care Encounter/Spiritual Assessment Type of Contact [] Declined inspector cold working visit [] Patient/Family/Request visit [] Outpatient visit [] Follow-up visit [] Physician referral [] Code/Alert [x] Routine visit [] Staff referral [] Actively dying [] Patient sleeping [x] Family support [] [] Out of room [] Palliative care [] [] Receiving care in room [] Pre-surgical visit [] Trauma [] Long length of stay [] ICU visit [] Other: Relational/Emotional Strength [x] Patient feels connected with others/family/visitors/staff [] Distress [] Loneliness/isolation [] Abandonment Spirituality of Patient [x] Person of Shannon [] Attends Confucianist of their Shannon [x] Believes in Prayer [] Reads Bible or Faith materials [] There are Spiritual issues to be addressed 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 Interventions [x] Prayer [x] Active listening [x] Non-anxious presence [x] Spiritual/emotional support [] Crisis/trauma care [] Spiritual counseling [] Bereavement support [] Provided bereavement packet [] Provided Bible/devotional materials [] Provided toy/stuffed animal, coloring book to patient or family member [] Provided Communion [] Anointing/[place] [] Salvation [x] Completed spiritual assessment [] Other: Impact on Illness or Injury [] Angry [] Fearful [] Anxious [] Often cries [] Exhaustion [] Unable to work [] Unable to attend confucianist [] Unable to walk/stand [] Unable to read [] Unable to drive [] Unable to eat/drink [] Unable to sleep [] Unable to be with family [] Patient intubated [] Other: Summary Time spent with patient 5 min
--- NOTE | 2025-03-01 10:10 | PC.PHAR ---
Pt states Dr Pan has her on Eliquis 5mg currently. I assume new rx will be sent at discharge.
--- NOTE | 2025-03-01 13:58 | P.PN_ITS ---
Subjective 2 Subjective: Patient was seen this morning, she is currently alert oriented x 3, following commands, no chest pain, no palpitations she does have a cough, she does report a family history of hypercoagulability, denies any significant cancer history, denies any night sweats, does report a 6 pound weight loss, no bloody black stools, Vitals/I&O/Wt Last Vital Signs Temp 97.8 F 03/01/25 11:36 Pulse 73 03/01/25 11:36 Resp 15 03/01/25 11:36 BP 128/91 03/01/25 11:36 Pulse Ox 94 03/01/25 11:36 O2 Del Method Room Air 03/01/25 11:36 02/28/25 03/01/25 03/01/25 22:59 06:59 14:59 Intake Total 240 / 240 360 / 360 Balance 240 / 240 360 / 360 Weight last 48 hrs Weight 90.435 kg Weight 89.857 kg Weight 87.09 kg Physical Exam 2 Const: COMMON NORMALS: no acute distress and patient oriented x3 Resp: COMMON NORMALS: normal respiratory effort, No retractions, No use of accessory muscles and clear to auscultation bilaterally AUSCULTATION: clear to auscultation bilaterally Cardio: COMMON NORMALS: regular rate, regular rhythm, S1 normal heart sound present and S2 normal heart sound present RATE: regular rate RHYTHM: r egular rhythm HEART SOUNDS: S1 normal heart sound present and S2 normal heart sound present GI: COMMON NORMALS: Normal to inspection, nondistended, normoactive bowel sounds present and non-tender Extremity: COMMON NORMALS: no calf tenderness and no pedal edema Neuro: COMMON NORMALS: patient oriented x3 Psych: COMMON NORMALS: mental status grossly normal Data 02/28/25 18:30 02/28/25 18:30 A&P Assessment and plan 1. Bilateral pulmonary embolism: 2. Acute deep vein thrombosis (DVT) of left lower extremity: 3. Tobacco abuse: 4. Family history of deep vein thrombosis: 5. Anemia: 6. Melena: Plan: Bilateral pulmonary embolism CT/CT angio chest PE protcl [id number] IMPRESSION: 1. Bilateral occlusive and nonocclusive pulmonary emboli involved within all lobes of the lung. Evidence of right heart strain. 2. The lungs are relatively clear. 3. T4 vertebral body sclerotic lesion. Correlation with prior examination is recommended. Stable then it is likely benign. Plan - Therapeutic Lovenox - Will monitor for 24-48 hrs. - Transition to Eliquis -Hypercoagulable panel - Cardiac echo - CT abdomen pelvis T4 vertebral body sclerotic lesion - Will need further workup Full code Lovenox for DVT prophylaxis PDMP PDMP Reviewed: Not Reviewed Attestations 2 Medical Necessity Statement*: Patient requires hospitalization for bilateral pulmonary emboli, left lower extremity DVT, inpatient, greater than 2 midnights Diagnoses Bilateral pulmonary embolism I26.99 Acute deep vein thrombosis (DVT) of left lower extremity I82.402 Tobacco abuse Z72.0 Family history of deep vein thrombosis Z82.49 Anemia D64.9 Melena K92.1
[2025-03-01 14:47] LABS: CA 125 11.1 U/mL (0-35)
[2025-03-01 15:08] LABS: Ferritin 73 ng/mL (15-150)
[2025-03-01 15:25] LABS: Carcinoembryonic Antigen 1.6 ng/mL (0.0-4.7)
[2025-03-01] MEDS: pantoprazole 40 mg SDV IVP (17:34)
[2025-03-02] VITALS (7 sets, daily range): BP systolic 127–129; BP diastolic 77–85; PULSE 71–85; RESP 15–17; TEMP 36.4–36.8; O2SAT 95–98
[2025-03-02 04:49] LABS: Hematocrit 32.1 % (36-47); Hemoglobin 9.90 g/dL (11.27-16.99); Mean Corpuscular HGB Conc 30.8 g/dL (30-55); Mean Corpuscular Hemoglobin 26.3 pg (27-33); Mean Corpuscular Volume 85.1 fl (85-98); Nucleated Red Blood Cells % 0 %; Platelet Count 175 10^3/cmm (157-399); Red Blood Count 3.77 10^6/uL (3.85-5.65); White Blood Count 6.42 10^3/uL (3.29-11.43)
[2025-03-02 05:09] LABS: Alanine Aminotransferase 10 U/L (0-33); Albumin Level 2.3 g/dL (3.5-5.2); Alkaline Phosphatase 155 U/L (35-105); Anion Gap 10.8 (5-19); Aspartate Amino Transferase 26 U/L (0-32); Blood Urea Nitrogen 11 mg/dL (6-20); Calcium 7.4 mg/dL (8.5-10.5); Carbon Dioxide 26 mmol/L (22-29); Chloride 106 mmol/L (98-107); Creatinine Clr Calc Pharmacy 133.0368; Globulin 2.8 g/dL (1.3-4.6); Glucose 78 mg/dL (65-115); Magnesium 1.9 mg/dL (1.7-2.3); Osmolality Calculated 288 mOsm/kg (285-295); Sodium 140 mmol/L (136-145); Total Protein 5.1 g/dL (6.6-8.7)
[2025-03-02 05:18] LABS: Potassium 2.8 mmol/L (3.5-5.1)
[2025-03-02] MEDS: pantoprazole 40 mg SDV IVP (06:02)
[2025-03-02] MEDS: DOCUSATE SODIUM 100 MG/10 ML UDC PO (06:09)
[2025-03-02] MEDS: ferrous sulfate EC 325 mg Tablet PO (08:30)
--- NOTE | 2025-03-02 10:31 | US_ITS ---
WS: [id number] ULTRASOUND SOFT TISSUES RIGHT cervical chain. HISTORY: right neck lymph nodes COMPARISON: None available. TECHNIQUE: 2-D and color Doppler imaging is submitted. Cerebral abnormal lymph nodes are noted in the RIGHT cervical chain. Although these lymph nodes are not significantly enlarged there is mild displacement of the fatty hilum. Cortical thickening measuring up to 5.8 mm. Mild central vascularity. US/US soft tissue head neck [id number] IMPRESSION: Abnormal RIGHT cervical chain lymph nodes. These may be reactive or neoplastic.
--- NOTE | 2025-03-02 13:30 | CT_ITS ---
WS: [id number] CT NECK TECHNIQUE: Contrast-enhanced CT of the neck with coronal and sagittal reformatted images. CLINICAL INFORMATION: cervical lymphadenoapthy COMPARISON: Ultrasound earlier today DLP: 263.[address] scans at [facility] use at least one of these dose optimization techniques: automated exposure control; mA and/or kV adjustment per patient size (includes targeted exams where dose is matched to clinical indication); or iterative reconstruction. FINDINGS: Mastoid air cells are well aerated. Paranasal sinuses are well aerated. Normal posterior nasopharynx. Normal parapharyngeal fat. Lung apices are well aerated. Parotid glands are normal. Submandibular glands are normal. No evidence of supraglottic or glottic mass. Normal subglottic airway. Normal thyroid. Normal aortic arch. Several bilateral slightly prominent cervical chain lymph nodes although not pathologically enlarged. Largest are the jugulodigastric lymph nodes within normal limits in short axis dimension. These are probably reactive. Few normal sized RIGHT submandibular space lymph nodes. No pathologic-appearing ly mphadenopathy. If continued concern recommend 3-month follow-up neck CT with contrast. No other suspicious findings. CT/CT neck w con* [id number] IMPRESSION: 1. Several bilateral slightly prominent cervical chain lymph nodes although not pathologically enlarged. Largest are the jugulodigastric lymph nodes within normal limits in short axis dimension. These are probably reactive. If continu ed concern recommend 3-month follow-up neck CT with contrast.
[2025-03-02] MEDS: iohexol 350 mg/mL 500 mL Btl (per mL) IV (13:56)
--- NOTE | 2025-03-02 14:27 | PM.DCS ---
Discharge Providers Date of Admission: 02/28/25 20:12 Date of Discharge: March 02, 2025 Attending Provider at Admission: Kofi Dexter MD Attending Provider at Discharge: Tony Pro MD Primary Care Provider: DELORIS Gu Diagnoses at Discharge Discharge Diagnosis 1. Bilateral pulmonary embolism: 2. Acute deep vein thrombosis (DVT) of left lower extremity: 3. Tobacco abuse: 4. Family history of deep vein thrombosis: 5. Anemia: 6. Melena: Reason for Visit Reason for Visit: sent in for possible clot in the leg Hospital Course Hospital Course This is a 39-year-old female with a history of gastric sleeve 2020, who presents to [facility] for shortness of breath Patient was admitted to [facility] for bilateral pulmonary embolism, left leg DVT Bilateral pulmonary embolism CT/CT angio chest PE protcl [id number] IMPRESSION: 1. Bilateral occlusive and nonocclusive pulmonary emboli involved within all lobes of the lung. Evidence of right heart strain. Ultrasound left leg FINDINGS: Left deep veins: There is a deep venous thrombosis involving the left popliteal vein and extending to the distal femoral vein. Remaining deep venous structures are normal. Superficial veins: Nonocclusive superficial venous thrombus involving the great saphenous vein at the mid thigh extending just below the knee. -Patient was admitted to [facility], received Lovenox therapy and clinical monitoring - Cardiac echo as below CONCLUSIONS LV systolic function is normal with EF of 60-65%. Mild mitral regurgitation. Mild tricuspid regurgitation. No comparison studies are available - Patient tolerated blood thinners, no bloody or black stools, hemoglobin 9.9 - She will be discharged on Eliquis therapy - With a close follow-up with hematology and oncology as outpatient For her family history of familial hypercoagulability, she had a hypercoagulability panel ordered, which is pending on discharge, follow-up with hematology as outpatient She was found to have a T4 vertebral body sclerotic lesion, follow-up with hematology/oncology as outpatient RIGHT adnexal/ovarian cyst measuring 4.5 x 4.2 cm. This could followed up with ultrasound, follow-up with OB as outpatient for ovarian ultrasound, CA125 negative Mild diffuse wall thickening of the colon more prominent in the hepatic flexure and proximal transverse colon. This may be incidental but recommend correlation for infectious or inflammatory colitis., CEA was negative, follow-up with general surgery for colonoscopy Smoking cessation counseling, advised patient to quit smoking Alcohol cessation counseling, advised to stop drinking alcohol Ultrasound neck US/US soft tissue head neck [id number] IMPRESSION: Abnormal RIGHT cervical chain lymph nodes. These may be reactive or neoplastic. CT neck CT/CT neck w con* [id number] IMPRESSION: 1. Several bilateral slightly prominent cervical chain lymph nodes although not pathologically enlarged. Largest are the jugulodigastric lymph nodes within normal limits in short axis dimension. These are probably reactive. If continued concern recommend 3-month follow-up neck CT with contrast. - Please follow-up with Dr. Cross, for consideration of biopsy given recent hypercoagulable event Physical Exam Const: COMMON NORMALS: no acute distress and patient oriented x3 Resp: COMMON NORMALS: normal respiratory effort, No retractions, No use of accessory muscles and clear to auscultation bilaterally AUSCULTATION: clear to auscultation bilaterally Cardio: COMMON NORMALS: regular rate, regular rhythm, S1 normal heart sound present and S2 normal heart sound present RATE: regular rate RHYTHM: regular rhythm HEART SOUNDS: S1 normal heart sound present and S2 normal heart sound present GI: COMMON NORMALS: Normal to inspection, nondistended, normoactive bowel sounds present and non-tender Extremity: COMMON NORMALS: no pedal edema Neuro: COMMON NORMALS: patient oriented x3 Psych: COMMON NORMALS: mental status grossly normal Discharge Data Studies Completed and Pending Completed Studies During Hospitalization Category Date Time Status CT abdomen pelvis wo con [id number] Stat Cat Scan 03/01/25 08:18 Completed CTA chest [CT angio chest PE protcl [id number]] Stat Cat Scan 02/28/25 18:23 Completed CV. echo complete* [id number] Stat Ultrasound 02/28/25 20:06 Completed US soft tissue head neck [id number] Stat Ultrasound 03/02/25 10:31 Completed US venous duplex lower extremity LT [CV venous duplex Ultrasound 02/28/25 16:43 [place] [id number]] Stat Pending at discharge Category Date Time Status CT neck w con* [id number] Stat Cat Scan 03/02/25 13:30 Ordered Antithrombin III Activity Routine Lab 02/28/25 22:05 Received BMP [Basic Metabolic Panel] Routine Lab 03/02/25 13:30 Ordered Complete Blood Count w/Auto AM LABS Lab 03/03/25 04:00 Ordered Complete Blood Count w/Auto AM LABS Lab 03/04/25 04:00 Ordered Comprehensive Metabolic Panel AM LABS Lab 03/03/25 04:00 Ordered Comprehensive Metabolic Panel AM LABS Lab 03/04/25 04:00 Ordered Factor 5 Leiden Mutation Routine Lab 02/28/25 22:05 Received Free T4 Free Thyroxine Routine Lab 03/02/25 13:30 Ordered Magnesium AM LABS Lab 03/03/25 04:00 Ordered Magnesium AM LABS Lab 03/04/25 04:00 Ordered Occult Blood Stool [Immunochemical Fecal OCB] Routine Lab 03/01/25 13:58 Uncollected PROTEIN C, ACTIVITY Routine Lab 02/28/25 22:05 Received PROTEIN S, ACTIVITY Routine Lab 02/28/25 22:05 Received PROTHROMBIN GENE [PROTHROMBIN (FACTOR II) [id number]] Lab 02/28/25 22:05 Received Routine Phosphorus AM LABS Lab 03/03/25 04:00 Ordered Phosphorus AM LABS Lab 03/04/25 04:00 Ordered T3 Free Routine Lab 03/02/25 13:30 Ordered TSH [Thyroid Stimulating Hormone] Routine Lab 03/02/25 13:30 Ordered Radiology Impressions Venous Duplex 02/28/25 16:43 IMPRESSION: Deep venous and superficial venous thrombosis as above Chest CTA 02/28/25 18:23 IMPRESSION: 1. Bilateral occlusive and nonocclusive pulmonary emboli involved within all lobes of the lung. Evidence of right heart strain. 2. The lungs are relatively clear. 3. T4 vertebral body sclerotic lesion. Correlation with prior examination is recommended. Stable then it is likely benign. ADDENDUM: 02/28/252027 THIS REPORT CONTAINS FINDINGS THAT MAY BE CRITICAL TO PATIENT CARE. The findings were verbally communicated via message with TANIA VASQUEZ at 8:26 PM CDT on 02/28/2025. The findings were acknowledged and understood. Abdomen/Pelvis CT 03/01/25 08:18 IMPRESSION: 1. Prior gastric bypass. No evidence of high-grade gastric obstruction. Few products in the stomach and duodenum. 2. RIGHT adnexal/ovarian cyst measuring 4.5 x 4.2 cm. This could followed up with ultrasound. 3. Mild diffuse wall thickening of the colon more prominent in the hepatic flexure and proximal transverse colon. This may be incidental but recommend correlation for infectious or inflammatory colitis. 4. Prior hysterectomy. Head/Neck Ultrasound 03/02/25 10:31 IMPRESSION: Abnormal RIGHT cervical chain lymph nodes. These may be reactive or neoplastic. Laboratory Results WBC 6.42 10^3/uL (3.29-11.43) 03/02/25 04: RBC 3.77 10^6/uL (3.85-5.65) L 03/02/25 04:26 Hgb 9.90 g/dL (11.27-16.99) L 03/02/25 04:26 Hct 32.1 % (36-47) L 03/02/25 04: MCV 85.1 fl (85-98) 03/02/25 04: MCH 26.3 pg (27-33) L 03/02/25 04: MCHC 30.8 g/dL (30-55) 03/02/25 04: RDW 21.9 % (12.1-15.1) H 03/02/25 04:26 Plt Count 175 10^3/cmm (157-399) 03/02/25 04: MPV 9.5 fL (7.4-10.4) 03/02/25 04: Neut % (Auto) 32.6 % 03/02/25 04: Lymph % (Auto) 55.3 % 03/02/25 04:26 [place] % (Auto) 10.1 % 03/02/25 04: Eos % (Auto) 1.2 % 03/02/25 04: Baso % (Auto) 0.6 % 03/02/25 04: Neut # (Auto) 2.09 10^3/uL (1.8-7.7) 03/02/25 04: Lymph # (Auto) 3.6 10^3/uL (0.8-4.8) 03/02/25 04: [place] # (Auto) 0.7 10^3/uL (0.2-0.9) 03/02/25 04:26 Eos # (Auto) 0.1 10^3/uL (0.0-0.8) 03/02/25 04: Baso # (Auto) 0.0 10^3/uL (0.0-0.1) 03/02/25 04:26 Nucleated RBC % (auto) 0 % 03/02/25 04:26 Nucleated RBCs # 0.0 /100WBC 03/02/25 04:26 Sodium 140 mmol/L (136-145) 03/02/25 04:26 Potassium 2.8 mmol/L (3.5-5.1) L* 03/02/25 04:26 Chloride 106 mmol/L (98-107) 03/02/25 04:26 Carbon Dioxide 26 mmol/L (22-29) 03/02/25 04:26 Anion Gap 10.8 (5-19) 03/02/25 04:26 BUN 11 mg/dL (6-20) 03/02/25 04:26 Creatinine 0.6 mg/dL (0.5-0.9) 03/02/25 04:26 GFR Calculation 110.7 mL/min (90-130) 03/02/25 04:26 Glucose 78 mg/dL (65-115) 03/02/25 04:26 Calculated Osmolality 288 mOsm/kg (285-295) 03/02/25 04:26 Calcium 7.4 mg/dL (8.5-10.5) L 03/02/25 04:26 Phosphorus 3.1 mg/dL (2.5-4.5) 03/02/25 04:26 Magnesium 1.9 mg/dL (1.7-2.3) 03/02/25 04:26 Iron 19 ug/dL (37-145) L 02/28/25 20:06 TIBC 196 mcg/dl 02/28/25 20:06 % Saturation 9.6 % (20-50) L 02/28/25 20:06 Unsat Iron Binding 177 ug/dL (112-347) 02/28/25 20:06 Ferritin 73 ng/mL (15-150) 03/01/25 00:32 Total Bilirubin 0.4 mg/dL (0.15-1.2) 03/02/25 04:26 AST 26 U/L (0-32) 03/02/25 04:26 ALT 10 U/L (0-33) 03/02/25 04:26 Alkaline Phosphatase 155 U/L (35-105) H 03/02/25 04:26 Troponin T Baseline < 6 ng/L (0-10) 02/28/25 18:30 Troponin T 120 Minute < 6.0 ng/L (0-10) 02/28/25 20:06 Delta Troponin T 0 ABS# (0-10) 02/28/25 20:06 Troponin T Hi Sens 6Hr 7.25 ng/L (0-10) 03/01/25 00:32 Troponin T Hi Sens 6Hr Delta 1.77573 ng/L (0-12) 03/01/25 00:32 NT-Pro-B Natriuret Pep 368 pg/mL (0-125) H 02/28/25 18:30 Total Protein 5.1 g/dL (6.6-8.7) L 03/02/25 04:26 Albumin 2.3 g/dL (3.5-5.2) L 03/02/25 04:26 Globulin 2.8 g/dL (1.3-4.6) 03/02/25 04:26 Carcinoembryonic Ag 1.6 ng/mL (0.0-4.7) 03/01/25 00:32 CA 125 Antigen 11.1 U/mL (0-35) 03/01/25 00:32 Vitals Last Vital Signs Temp 97.5 F L 03/02/25 08:08 Pulse 74 03/02/25 08:08 Resp 17 03/02/25 08:08 BP 129/83 03/02/25 08:08 Pulse Ox 97 03/02/25 08:08 O2 Del Method Room Air 03/02/25 08:08 Discharge Plan Discharge Patient Disposition: Home Condition: Stable Prescriptions: New Eliquis 5 mg tablet See Rx Instructions .ROUTE .COMPLEX Qty: 74 0RF Rx Instructions: 2tabs (10mg) bid for 7 days, followed 1tab (5mg) BID thereafter Continued pantoprazole 40 mg tablet,delayed release (DR/EC) 40 mg PO BID meclizine 25 mg tablet 25 mg PO TID PRN (Reason: Dizziness Or Vertigo) paroxetine HCl 30 mg tablet 30 mg PO DAILY Referrals: Husam Miramontes MD [Physician, General Surgery] - 1 month Referral Note: colonoscopy Hedy Gallardo FNP [Primary Care Provider, Primary Care Provider] - 03/06/25 1:40 pm Jeremy Kirkland MD [Physician, [facility]] - 2 weeks Referral Note: right adnexaa cyst/mass Sekou Cross MD [Hospitalist, Oncology] - 7-10 days Referral Note: pulmonary embolism Discharge Diet: Cardiac Discharge Activity: Resume usual activity Patient Instructions: Opioid Safety, Patient Portal & Smita Instructions Discharge Attestations Time Spent in Discharge Care*: greater than 30 min Quality Metrics Clinical Quality Measures [ No reported AMI, CVA or VTE this stay] Coding Level of Care Code 40688 Total time (in minutes) for Discharge: 45 Diagnoses Bilateral pulmonary embolism I26.99 Acute deep vein thrombosis (DVT) of left lower extremity I82.432 Affected thrombotic vein of extremity: popliteal Tobacco abuse Z72.0 Family history of deep vein thrombosis Z82.49 Anemia D64.9 Melena K92.1
[2025-03-02 15:07] LABS: Anion Gap 12.7 (5-19); Blood Urea Nitrogen 12 mg/dL (6-20); Calcium 7.6 mg/dL (8.5-10.5); Carbon Dioxide 25 mmol/L (22-29); Chloride 106 mmol/L (98-107); Creatinine Clr Calc Pharmacy 133.2595; Free T4 Free Thyroxine 1.18 ng/dL (0.82-1.77); Glucose 90 mg/dL (65-115); Osmolality Calculated 289 mOsm/kg (285-295); Potassium 3.7 mmol/L (3.5-5.1); Sodium 140 mmol/L (136-145); Thyroid Stimulating Hormone 1.18 uIU/mL (0.27-4.20)
--- NOTE | 2025-03-02 17:18 | PC.NURSE ---
Written and verbal education given to patient with present in room. All questions answered and IV removed. Pt left via wheelchair with .
[2025-03-04 22:44] LABS: PROTEIN C, ACTIVITY 52 % normal (70-180)
== END 2025-03-02 17:41 | disposition home or self-care (01) ==
LOC: ER 20:43 → ER IP 21:54 → MEDSURG 23:27 → ER IP 03-01 07:14 → MEDSURG 03-01 07:14
PROVIDERS: Admitting Provider Internal Medicine; Emergency Provider Physician Assistant; PCP Nurse Practitioner Family; Visit Provider Family Medicine
DX: I26.99 Other pulmonary embolism without acute cor pulmonale (principal); I82.432 Acute embolism and thrombosis of left popliteal vein; Z82.49 Family history of ischemic heart disease and other diseases of the circulatory system; D64.9 Anemia, unspecified; K92.1 Melena; K21.9 Gastro-esophageal reflux disease without esophagitis; I10 Essential (primary) hypertension; F41.9 Anxiety disorder, unspecified; F17.210 Nicotine dependence, cigarettes, uncomplicated
CPT/HCPCS: 36415; 70491; 71275; 74176; 76536; 80048; 80053; 81241; 82378; 82728; 83540; 83550; 83735; 83880; 84100; 84439; 84443; 84481; 84484; 85025; 85210; 85300; 85303; 85306; 86304; 93005; 93306; 93971; 96372; 99285; G0378; J1650; J2470; J7030; J9999

== ENCOUNTER 2025-04-11 13:04 | Oncology outpatient (recurring) (ONCR) | payer OTHER, BC, SELFPAY ==
[2025-03-28 09:05] VITALS: BP 135/92; PULSE 92; RESP 18; TEMP 36.6; O2SAT 97
[2025-03-28] MEDS: iron sucrose 200 MG in sodium chloride 0.9% (100 ml) 100 ML IV (09:22)
[2025-03-28 16:32] VITALS: BP 141/78; PULSE 78; RESP 16; TEMP 36.6; O2SAT 98
--- NOTE | 2025-04-04 07:45 | US_ITS ---
WS: [id number] US pelv w/transvag [id number] HISTORY: Ovarian cyst. COMPARISON: 05/08/2021, CT 03/01/2025 Prior hysterectomy. No free fluid in the pelvis. No mass. Neither ovary is definitely identified. No pelvic mass or cyst. US/US pelv w/transvag [id number] IMPRESSION: 1. Status post hysterectomy. 2. RIGHT ovary is not definitely identified. No ovarian cyst identified on [facility] ultrasound evaluation.
[2025-04-04] MEDS: iron sucrose 200 MG in sodium chloride 0.9% (100 ml) 100 ML IV (09:01)
[2025-04-04 09:08] VITALS: BP 114/72; PULSE 77; RESP 16; TEMP 36.8; O2SAT 96
[2025-04-04 09:46] VITALS: BP 121/81; PULSE 67; RESP 17; TEMP 36.2; O2SAT 98
[2025-04-11] MEDS: iron sucrose 200 MG in sodium chloride 0.9% (100 ml) 100 ML IV (13:39)
[2025-04-11 14:25] VITALS: BP 119/82; PULSE 83; RESP 18; TEMP 36.6; O2SAT 97
== END 2025-04-17 23:59 | disposition home or self-care (01) ==
PROVIDERS: PCP Nurse Practitioner Family; Visit Provider Internal Medicine Medical Oncology
DX: D50.9 Iron deficiency anemia, unspecified; Z79.899 Other long term (current) drug therapy; Z53.9 Procedure and treatment not carried out, unspecified reason
CPT/HCPCS: 76830; 76856; 96365; J1756; J7050

== ENCOUNTER 2025-04-26 13:00 | Oncology outpatient (recurring) (ONCR) | payer OTHER, BC, MEDICAID, SELFPAY ==
[2025-04-18] MEDS: iron sucrose 200 MG in sodium chloride 0.9% (100 ml) 100 ML IV (11:23)
[2025-04-18 12:15] VITALS: BP 124/82; PULSE 65; RESP 17; TEMP 36.6; O2SAT 99
[2025-04-26] MEDS: iron sucrose 200 MG in sodium chloride 0.9% (100 ml) 100 ML IV (13:18)
[2025-04-26 13:58] VITALS: BP 106/63; PULSE 80; RESP 17; TEMP 36.9; O2SAT 99
== END 2025-05-18 23:59 | disposition home or self-care (01) ==
PROVIDERS: PCP Nurse Practitioner Family; Visit Provider Internal Medicine Medical Oncology
DX: D50.9 Iron deficiency anemia, unspecified; Z79.899 Other long term (current) drug therapy; Z53.9 Procedure and treatment not carried out, unspecified reason
CPT/HCPCS: 96361; 96365; J1756; J7050

== ENCOUNTER 2025-05-29 13:41 | Oncology outpatient (recurring) (ONCR) | payer OTHER, BC, MEDICAID, SELFPAY ==
[2025-05-29 14:00] LABS: Hematocrit 37.6 % (36-47); Hemoglobin 13.00 g/dL (11.27-16.99); Mean Corpuscular HGB Conc 34.6 g/dL (30-55); Mean Corpuscular Hemoglobin 35.0 pg (27-33); Mean Corpuscular Volume 101.3 fl (85-98); Nucleated Red Blood Cells % 0 %; Platelet Count 109 10^3/cmm (157-399); Red Blood Count 3.71 10^6/uL (3.85-5.65); White Blood Count 5.89 10^3/uL (3.29-11.43)
[2025-05-29 14:19] LABS: Alanine Aminotransferase 24 U/L (0-33); Albumin Level 3.5 g/dL (3.5-5.2); Alkaline Phosphatase 113 U/L (35-105); Anion Gap 13.1 (5-19); Aspartate Amino Transferase 68 U/L (0-32); Blood Urea Nitrogen 7 mg/dL (6-20); Calcium 8.1 mg/dL (8.5-10.5); Carbon Dioxide 25 mmol/L (22-29); Chloride 104 mmol/L (98-107); Ferritin 472 ng/mL (15-150); Globulin 3.0 g/dL (1.3-4.6); Glucose 109 mg/dL (65-115); Iron 122 ug/dL (37-145); Osmolality Calculated 287 mOsm/kg (285-295); Potassium 3.1 mmol/L (3.5-5.1); Sodium 139 mmol/L (136-145); Total Iron Binding Capacity 205 mcg/dl; Total Protein 6.5 g/dL (6.6-8.7); Unsaturated Iron Binding 83 ug/dL (112-347)
[2025-05-29 14:35] LABS: Vitamin B12 335 pg/mL (232-1245)
== END 2025-06-17 23:59 | disposition home or self-care (01) ==
PROVIDERS: PCP Nurse Practitioner Family; Visit Provider Internal Medicine Medical Oncology
DX: N83.209 Unspecified ovarian cyst, unspecified side (principal); K92.2 Gastrointestinal hemorrhage, unspecified; R59.0 Localized enlarged lymph nodes; Z72.0 Tobacco use; I82.432 Acute embolism and thrombosis of left popliteal vein
CPT/HCPCS: 36415; 80053; 82607; 82728; 82746; 83540; 83550; 85025